=== PATIENT | female | born 1960 | race Caucasian/White ===

== ENCOUNTER 2020-02-14 12:32 | Inpatient (IN) | payer MEDICAID, OTHER ==
[2020-02-14] MEDS ORDERED: Sodium Chloride 0.9% 10 ML Syringe FLUSH PRN (12:56)
[2020-02-14] MEDS ORDERED: Sodium Chloride 0.9% 2.5 ML Syringe FLUSH PRN ×2 (12:56→15:51)
[2020-02-14] MEDS ORDERED: Pantoprazole 80 MG in Sodium Chloride 0.9% 20 ML IVPUSH ONE (13:05)
--- NOTE | 2020-02-14 13:15 | EDM.PDOC ---
ED HPI GENERAL MEDICAL PROBLEM - General Chief Complaint: Gastrointestinal Problem Stated Complaint: REFERRED FROM [facility] Time Seen by Provider: 02/14/20 12:48 Source of Information: Reports: Patient History Limitations: Reports: No Limitations - History of Present Illness INITIAL COMMENTS - FREE TEXT/NARRATIVE: 60-year-old female with a past medical history of diabetes mellitus, hypertension, status post cholecystectomy, status post appendectomy, Crohn's disease (not on immunosuppression), status post 2 bowel resections, hypertension presenting from [facility] due to repeated episodes of coffee-ground emesis and intractable vomiting. Initially seen in [facility] and noted to have recurrent episodes of emesis with coffee-ground appearance, so was sent to the e mergency department. Here in the emergency department, the patient reports a 2-day history of epigastric pain along with multiple episodes of coffee-ground emesis x4 today. She reports intermittent dark stools the past 2 weeks. Nothing makes her pain better or worse and does not radiate, described as "burning". She denies any history of a bleeding disorder, hemoptysis, hematuria, chest discomfort, shortness of breath, fever. ROS: A 10-point review of systems was negative, except as noted in the HPI (or in the ROS section of this note). Past medical history: Reviewed, no additional pertinent history. Surgical history: Reviewed in system, no additional pertinent history. Social history: Reviewed in system, no additional pertinent history. Family history: Reviewed in system, no additional pertinent history. PHYSICAL EXAM Vital signs reviewed. Nursing notes reviewed. Constitutional: Awake, alert, non-distressed. Head: Normocephalic, atraumatic. Eyes: EOMI, conjunctiva normal, no discharge, no scleral icterus. Ears, Nose, Throat: External ears and nose normal, moist oral mucosa. Cardiovascular: Tachycardia, 2+ radial pulse, capillary refill less than 2 seconds. Pulmonary: normal work of breathing, no accessory muscle use. RRR no MRG Abdomen/GI: Soft, nontender, nondistended, no guarding or rigidity, no masses. : Lone external hemorrhoid, no gross blood or melena. Weakly guaiac positive stool. Musculoskeletal: No deformities. Integumentary: Appropriate color for ethnicity, warm, dry, no pallor or jaundice, no rash. Neurologic: Alert, answering questions appropriately, normal speech, no facial droop, moving all extremities well. Psychiatric: Appropriate mood and affect, normal thought process. - Related Data Allergies Allergy/AdvReac Type Severity Reaction Status Date / Time aspirin [From Percodan] Allergy Muscle Verified 02/14/20 16:35 Weakness oxycodone HCl [From Percodan] Allergy Muscle Verified 02/14/20 16:35 Weakness oxycodone terephthalate Allergy Muscle Verified 02/14/20 16:35 [From Percodan] Weakness Home Meds: Home Meds . [No Known Home Meds] 02/14/20 [History] Past Medical History HEENT History: Reports: Other (See Below) Other HEENT History: wears glasses, has upper partial denture Cardiovascular History: Reports: CAD, Hypertension, Other (See Below) Other Cardiovascular History: Angioplasty in or . 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: Musculoskeletal History: Reports: None Neurological History: Reports: None Psychiatric History: Reports: None Other Psychiatric History: does not have depression currently Endocrine/Metabolic History: Reports: Diabetes, Type II Hematologic History: Reports: None Immunologic History: Reports: None Oncologic (Cancer) History: Reports: None Dermatologic History: Reports: None - Past Surgical History Head Surgeries/Procedures: Reports: None Cardiovascular Surgical History: Reports: Other (See Below) Respiratory Surgical History: Reports: None GI Surgical History: Reports: Cholecystectomy, Colon, Colonoscopy, EGD, Small Bowel Female Surgical History: Reports: Section, Hysterectomy, Salpingo- Oophorectomy Neurological Surgical History: Reports: None Musculoskeletal Surgical History: Reports: None Oncologic Surgical History: Reports: None Dermatological Surgical History: Reports: None Social & Family History - Family History Cardiac: Reports: Hypertension, [place] Neurological: Reports: CVA Endocrine/Metabolic: Reports: Diabetes, type II Oncologic: Reports: Breast, Colon ED ROS GENERAL - Review of Systems Review Of Systems: See Below ED EXAM, GI/ABD - Physical Exam Exam: See Below EKG INTERPRETATION EKG Interpretation Comments: 12-Lead ECG Interpretation Acquired: 1308 Rhythm: Sinus rhythm Rate: 90 [place]: Normal Intervals: Normal Ectopy: None Ischemic Changes: None apparent RV Strain: No obvious RV strain pattern. ST Segments/T-Waves: Prominent T-waves in inferior leads Course - Vital Signs Text/Narrative:: 60-year-old male presenting with epigastric abdominal pain, coffee-ground emesis . Reviewed labs from clinic earlier today, normal hemoglobin and overall reassuring lab values, no significant abnormalities. We establish an IV and lance additional labs. INR normal, lipase normal, troponin is negative. Patient was initially tachycardic, given 1 L of lactated Ringer's and heart rate normalized. Given 80 mg of IV pantoprazole. Stool was weakly guaiac positive. Given epigastric pain with reported coffee-ground emesis and guaiac positive stool, there is concern for an upper GI bleed. Patient will need to be admitted the hospital and will likely need to undergo endoscopy. I spoke with the hospitalist Dr. Woodard who agrees to admit. Last Recorded V/S: Last Vital Signs Temp 36.9 C 02/14/20 16:07 Pulse 77 02/14/20 16:07 Resp 16 02/14/20 16:07 BP 157/75 H 02/14/20 16:07 Pulse Ox 98 02/14/20 16:07 - Orders/Labs/Meds Orders: Active Orders 24 hr Category Date Time Status Admission Status [Patient Status] [ADT] Stat ADT 02/14/20 14:15 Active Notify Provider Consults [RC] ASDIRECTED Care 02/14/20 15:33 Active Pulse Oximetry [RC] ASDIRECTED Care 02/14/20 12:56 Active Consult to Physician [CONS] Stat Cons 02/14/20 15:32 Active Medication Orders Acetaminophen (Tylenol) 650 mg PO Q4H PRN PRN Reason: Pain (Mild 1-3)/fever Last Admin: 02/14/20 17:53 Dose: 650 mg Documented by: PROFLUC Sodium Chloride (Normal Saline) 1,000 mls @ 125 mls/hr IV Q8H PREETI Last Admin: 02/14/20 16:33 Dose: 125 mls/hr Documented by: DANIELLE Pantoprazole Sodium 40 mg/ (Sodium Chloride) 10 mls @ 200 mls/hr IV Q12H PREETI Ondansetron HCl (Zofran) 4 mg IVPUSH Q4H PRN PRN Reason: Nausea Sodium Chloride (Saline Flush) 2.5 ml FLUSH ASDIRECTED PRN PRN Reason: Keep Vein Open Labs: Laboratory Tests 02/14/20 02/14/20 02/14/20 Range/Units 13:24 13:24 13:24 INR 0.98 Troponin I < 0.050 (0.000-0.056) ng/mL Lipase 156 (73-393) U/L Blood Type A POSITIVE Meds: Medications Generic Name Dose Route Start Last Admin Trade Name Freq PRN Reason Stop Dose Admin Acetaminophen 650 mg 02/14/20 15:48 02/14/20 17:53 Tylenol PO 650 mg Q4H PRN Administration Pain (Mild 1-3)/fever Sodium Chloride 1,000 mls @ 125 mls/hr 02/14/20 16:00 02/14/20 16:33 Normal Saline IV 125 mls/hr Q8H PREETI Administration Pantoprazole Sodium 40 mg/ 10 mls @ 200 mls/hr 02/14/20 21:00 Sodium Chloride IV Q12H PREETI Ondansetron HCl 4 mg 02/14/20 15:48 Zofran IVPUSH Q4H PRN Nausea Sodium Chloride 2.5 ml 02/14/20 15:51 Saline Flush FLUSH ASDIRECTED PRN Keep Vein Open Discontinued Medications Generic Name Dose Route Start Last Admin Trade Name Freq PRN Reason Stop Dose Admin Pantoprazole Sodium 80 mg/ 20 mls @ 420 mls/hr 02/14/20 13:05 02/14/20 13:52 Sodium Chloride IVPUSH 02/14/20 13:07 420 mls/hr ONETIME ONE Administration Lactated Ringer's 1,000 mls @ 999 mls/hr 02/14/20 13:50 02/14/20 13:52 Ringers, Lactated IV 02/14/20 14:50 999 mls/hr .BOLUS ONE Administration Sodium Chloride 10 ml 02/14/20 12:56 Saline Flush FLUSH ASDIRECTED PRN Keep Vein Open Sodium Chloride 2.5 ml 02/14/20 12:56 Saline Flush FLUSH ASDIRECTED PRN Keep Vein Open Departure - Departure Time of Disposition: 14:44 Disposition: Admitted As Inpatient 65 Condition: Good Clinical Impression: Hematemesis Qualifiers: Nausea presence: with nausea Qualified Code(s): K92.0 - Hematemesis - Discharge Information Sepsis Event Note (ED) - Evaluation Sepsis Screening Result: No Definite Risk - Focused Exam Vital Signs: Vital Signs Temp Pulse Resp BP Pulse Ox 02/14/20 15:30 78 146/78 H 97 02/14/20 15:00 75 17 151/85 H 96 02/14/20 14:29 76 138/78 96 02/14/20 13:59 79 17 136/77 98 02/14/20 13:29 85 17 144/86 H 97 02/14/20 13:02 37.2 C 99 17 169/92 H 98 - My Orders Last 24 Hours: My Active Orders 02/14/20 12:56 Pulse Oximetry [RC] ASDIRECTED 02/14/20 14:15 Admission Status [Patient Status] [ADT] Stat - Assessment/Plan Last 24 Hours: My Active Orders 02/14/20 12:56 Pulse Oximetry [RC] ASDIRECTED 02/14/20 14:15 Admission Status [Patient Status] [ADT] Stat
[2020-02-14] MEDS ORDERED: Lactated Ringers 1,000 ML IV ONE (13:50)
[2020-02-14 14:07] LABS: LIPASE 156 U/L (73-393)
--- NOTE | 2020-02-14 15:42 | PCM.HP.2 ---
H&P History of Present Illness - General Date of Service: 02/14/20 Admit Problem/Dx: Admission Diagnosis/Problem Admission Diagnosis/Problem Hematemesis Source of Information: Patient History Limitations: Reports: No Limitations - History of Present Illness Initial Comments - Free Text/Narative: 60-year-old female with a pmh of DM type 2, HTN, hx cholecystectomy, appendecto my, Crohn's disease (not on immunosuppression), s/p 2 bowel resections presenting from [facility] clinic due to repeated episodes of coffee-ground emesis and intractable vomiting. She reports 2 days ago she started having epigastric pain and nausea, over the last day this pain has worsened and has had some relief with vomiting. She reports the emesis appeared like coffee grounds and stools have been dark in color. She reports the stools have change consistency freqeuntly and has noted smoe very watery stools and then some more formed normal stools over the past couple weeks or so. Denies rashmi bright red blood in stools. She denies fevers or chills, no chest pain or SOB. Pain is located in her epigastric region and slightly to her LUQ. She denies NSAID use and no alcohol use. No recreational drug use and no smoking. She reports her last colonoscopy was [address]. She has had many abdominal operations as listed above. She has not been on any medications in the last 2 years for Crohn's and currently is diet controlled DM and HTN. In the ED leukocytosis ntoed at 17,780, hgb 14.2, INR 0.98, lactic acid 1.8, BUN 21, Cr 0.9 troponin negative. A1c 6.3, Lipase 156. VS stable, no hypotension or tachycardia noted. No imaging completed in ED. She will be admitted inpatient for upper GI bleeding. - Related Data Allergies/Adverse Reactions: Allergies Allergy/AdvReac Type Severity Reaction Status Date / Time aspirin [From Percodan] Allergy Muscle Verified 02/14/20 13:02 Weakness oxycodone HCl [From Percodan] Allergy Muscle Verified 02/14/20 13:02 Weakness oxycodone terephthalate Allergy Muscle Verified 02/14/20 13:02 [From Percodan] Weakness Home Medications: Home Meds Losartan/Hydrochlorothiazide [Losartan-HCTZ 100-12.5 MG] 1 each PO DAILY 07/12/15 [History] Multivitamin [Multi-Day Vitamins] 1 tab PO DAILY 07/31/15 [History] Potassium Chloride [Klor-Con M20] 1 tab PO DAILY 07/31/15 [History] Vit B Cmplx 3/Fa/Vit C/Biotin [Nickie-Mohinder Rx Tablet] 1 tab PO DAILY 07/31/15 [History] sitaGLIPtin Phos/Metformin HCl [Janumet Xr 50-1,000 mg Tablet] 1 tab PO BID 07/31/15 [History] Calcium Carbonate/Vitamin D3 [Calcium 600 + Vit D 400 Tablet] 1 tab PO BID 09/30/15 [History] Cholestyramine/Aspartame [Cholestyramine Light Powder] 1 pkt PO DAILY 05/27/16 [History] Past Medical History HEENT History: Reports: Other (See Below) Other HEENT History: wears glasses, has upper partial denture Cardiovascular History: Reports: CAD, Hypertension, Other (See Below) Other Cardiovascular History: Angioplasty in or . 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: Musculoskeletal History: Reports: None Neurological History: Reports: None Psychiatric History: Reports: None Other Psychiatric History: does not have depression currently Endocrine/Metabolic History: Reports: Diabetes, Type II Hematologic History: Reports: None Immunologic History: Reports: None Oncologic (Cancer) History: Reports: None Dermatologic History: Reports: None - Infectious Disease History Infectious Disease History: Reports: None - Past Surgical History Head Surgeries/Procedures: Reports: None Cardiovascular Surgical History: Reports: Other (See Below) Respiratory Surgical History: Reports: None GI Surgical History: Reports: Cholecystectomy, Colon, Colonoscopy, EGD, Small Bowel Female Surgical History: Reports: Section, Hysterectomy, Salpingo- Oophorectomy Neurological Surgical History: Reports: None Musculoskeletal Surgical History: Reports: None Oncologic Surgical History: Reports: None Dermatological Surgical History: Reports: None Social & Family History - Family History Cardiac: Reports: Hypertension, [place] Neurological: Reports: CVA Endocrine/Metabolic: Reports: Diabetes, type II Oncologic: Reports: Breast, Colon - Tobacco Use Smoking Status *Q: Unknown Ever Smoked - Alcohol Use Alcohol Use History: No - Living Situation & Occupation Living situation: Reports: H&P Review of Systems - Review of Systems: Review Of Systems: See Below General: Reports: Malaise. Denies: Fever, Chills HEENT: Reports: No Symptoms. Denies: Headaches, Sinus Congestion, Vertigo Pulmonary: Reports: No Symptoms. Denies: Shortness of Breath Cardiovascular: Reports: No Symptoms. Denies: Chest Pain Gastrointestinal: Reports: Abdominal Pain (epigastric), Decreased Appetite, Hematemesis, Nausea, Vomiting. Denies: Black Stool (dark in color) Genitourinary: Reports: No Symptoms. Denies: Dysuria, Frequency, Burning Musculoskeletal: Reports: No Symptoms Skin: Reports: No Symptoms Psychiatric: Reports: No Symptoms Neurological: Reports: No Symptoms Hematologic/Lymphatic: Reports: No Symptoms Immunologic: Reports: No Symptoms Exam - Exam Exam: See Below - Vital Signs Vital Signs: Last Vital Signs Temp 98.9 F 02/14/20 13:02 Pulse 85 02/14/20 13:29 Resp 17 02/14/20 13:29 BP 144/86 H 02/14/20 13:29 Pulse Ox 97 02/14/20 13:29 Weight: 58.967 kg - Exam General: Alert, Oriented, Cooperative Neck: Supple, Trachea Midline Lungs: Clear to Auscultation, Normal Respiratory Effort Cardiovascular: Regular Rate, Regular Rhythm GI/Abdominal Exam: Normal Bowel Sounds, Soft, Tender (epigastric) Back Exam: Normal Inspection, Full Range of Motion Extremities: Normal Inspection, Normal Range of Motion, Non-Tender, No Pedal Edema Neuro Extensive - Mental Status: Alert, Oriented x3 Neuro Extensive - Motor, Sensory, Reflexes: CN II-XII Intact Psychiatric: Alert, Normal Affect, Normal Mood - Patient Data Lab Results Last 24 hrs: Laboratory Results - last 24 hr 02/14/20 02/14/20 02/14/20 Range/Units 13:24 13:24 13:24 INR 0.98 Troponin I < 0.050 (0.000-0.056) ng/mL Lipase 156 (73-393) U/L Blood Type A POSITIVE Sepsis Event Note - Evaluation Sepsis Screening Result: No Definite Risk - Focused Exam Vital Signs: Vital Signs Temp Pulse Resp BP Pulse Ox 02/14/20 13:29 85 17 144/86 H 97 02/14/20 13:02 98.9 F 99 17 169/92 H 98 - Problem List (1) Hematemesis SNOMED Code(s): 8630552 ICD Code: K92.0 - HEMATEMESIS Status: Acute Current Visit: Yes Qualifiers: Nausea presence: with nausea Qualified Code(s): K92.0 - Hematemesis (2) HTN (hypertension) SNOMED Code(s): 79702133 ICD Code: I10 - ESSENTIAL (PRIMARY) HYPERTENSION Status: Chronic Current Visit: Yes Qualifiers: Hypertension type: essential hypertension Qualified Code(s): I10 - Essential (primary) hypertension (3) DM type 2 (diabetes mellitus, type 2) SNOMED Code(s): 54247830 ICD Code: E11.9 - TYPE 2 DIABETES MELLITUS WITHOUT COMPLICATIONS Status: Chronic Current Visit: Yes Qualifiers: Diabetes mellitus penitentiary insulin use: without intermediate project manager use Diabetes mellitus complication status: without complication Qualified Code(s): E11.9 - Type 2 diabetes mellitus without complications (4) Crohn disease SNOMED Code(s): 22981338 ICD Code: K50.90 - CROHN'S DISEASE, UNSPECIFIED, WITHOUT COMPLICATIONS Status: Chronic Current Visit: Yes Problem List Initiated/Reviewed/Updated: Yes Orders Last 24hrs: Active Orders 24 hr Category Date Time Status Admission Status [Patient Status] [ADT] Stat ADT 02/14/20 14:15 Active Cardiac Monitoring [RC] . DIRECTED Care 02/14/20 12:56 Active EKG Documentation Completion [RC] STAT Care 02/14/20 12:56 Active Notify Provider Consults [RC] ASDIRECTED Care 02/14/20 15:33 Active Pulse Oximetry [RC] ASDIRECTED Care 02/14/20 12:56 Active Consult to Physician [CONS] Stat Cons 02/14/20 15:32 Active Nothing Per Oral Diet [DIET] Diet 02/14/20 Breakfast Active Abdomen Pelvis wo Cont [CT] Stat Exams 02/14/20 15:40 Ordered Sodium Chloride 0.9% [Saline Flush] Med 02/14/20 12:56 Active 10 ml FLUSH ASDIRECTED PRN Sodium Chloride 0.9% [Saline Flush] Med 02/14/20 12:56 Active 2.5 ml FLUSH ASDIRECTED PRN Saline Lock Insert [OM.PC] Stat Oth 02/14/20 12:56 Ordered Medication Orders Sodium Chloride (Saline Flush) 10 ml FLUSH ASDIRECTED PRN PRN Reason: Keep Vein Open Sodium Chloride (Saline Flush) 2.5 ml FLUSH ASDIRECTED PRN PRN Reason: Keep Vein Open Assessment/Plan Comment:: This 60 year old female admitted with hematemsis and suspect upper GI bleeding 1. Upper GI bleeding - leukocytosis noted, will add CT abdomen/pelvis on due to hx of Crohns to further evaluate - Protonix 40 mg IV Q12h - IVFs NS 125 overnight - NPO for now - Dr Paul, General surgery consulted 2. DM type 2 - Novolog SSI every 6 hours with blood sugar checks 3. HTN/Crohns - Monitor for now. Stable VTE prophylaxis: SCDs Dispo: 2-3 days pending improvement
[2020-02-14] MEDS ORDERED: Acetaminophen 325 MG Tab PO PRN (15:48)
[2020-02-14] MEDS ORDERED: Ondansetron 4 MG/2 ML SDV IVPUSH PRN (15:48)
[2020-02-14] MEDS: Sodium Chloride 0.9% 1,000 ML IV SCH (16:33)
--- NOTE | 2020-02-14 17:29 | CT ---
CT abdomen and pelvis Technique: Multiple axial sections were obtained from above the dome of the diaphragm inferiorly through the pubic symphysis. Intravenous and oral contrast not utilized. Comparison: No prior CT abdomen or pelvis exam is available. Findings: Visualized lung bases show nothing acute. Liver contains no focal abnormality. Spleen appears within normal limits. Adrenal glands show no nodule. Surgical clips are seen from previous cholecystectomy. Pancreas shows no discrete abnormality. Kidneys show no abnormal calcifications. No ureteral dilatation or ureteral stone is appreciated. Aorta shows no aneurysm. No retroperitoneal adenopathy or mesenteric abnormalities are seen. Mild atherosclerotic calcification seen within the aorta. Mild increased stool seen throughout the colon. Mildly dilated small bowel loops are seen. Previous right hemicolectomy is noted. No pelvic mass or adenopathy is seen. Bone window settings were reviewed which shows no acute osseous finding. Impression: 1. Previous right hemicolectomy. 2. Mild increased stool within the colon. 3. Mildly dilated small bowel loops which occurs all the way to the anastomotic site within the residual right colon. Fecalized small bowel content is seen within the distal ileum. 4. No focal areas of bowel wall narrowing are seen. Diagnostic code #3 This report was dictated in [facility]
[2020-02-14] MEDS ORDERED: Pantoprazole 40 MG Vial IV SCH (21:00)
[2020-02-14] MEDS: Pantoprazole 40 MG in Sodium Chloride 0.9% 10 ML IV SCH (21:20)
[2020-02-14] MEDS: Ciprofloxacin in D5W 400 MG in Premix Bag 1 BAG IV SCH ×2 (21:20)
[2020-02-15] MEDS: metroNIDAZOLE/Normal Saline 500 MG in Premix Bag 1 BAG IV SCH ×4 (00:18→18:02)
[2020-02-15] MEDS: Sodium Chloride 0.9% 1,000 ML IV SCH ×2 (03:42→14:06)
[2020-02-15 07:30] LABS: BLOOD UREA NITROGEN,BUN 14 mg/dL (7.0-18.0); CARBON DIOXIDE,CO2 20.3 mmol/L (21.0-32.0); CHLORIDE,CL 112 mmol/L (98-107); GLUCOSE RANDOM 87 mg/dL (74-106); POTASSIUM,K 3.5 mmol/L (3.5-5.1); SODIUM,NA 143 mmol/L (136-145)
[2020-02-15] MEDS: Ciprofloxacin in D5W 400 MG in Premix Bag 1 BAG IV SCH ×4 (08:24→22:00)
--- NOTE | 2020-02-15 09:40 | PCM.SN.2 ---
- Free Text/Narrative Note: pt seen, chart reviewed; resolved emisis/abd cramp, had well formed BM last night; recommend start po diet, full liquid X 3 days, then advance if tolerated; setve foy surgery AND crohns GI in 1 - 2 wks; will sign off, recall if question; [id number]
[2020-02-15] MEDS: Pantoprazole 40 MG in Sodium Chloride 0.9% 10 ML IV SCH ×2 (09:58→21:52)
--- NOTE | 2020-02-15 13:08 | PCM.PN ---
- General Info Date of Service: 02/15/20 Admission Dx/Problem (Free Text): Admission Diagnosis/Problem Admission Diagnosis/Problem Hematemesis Subjective Update: Feeling a little better this morning, had BM last night. NO further nausea or emesis. No chest pain or SOB. Reports stomach feels a little uneasy with some pressure but otherwise doing ok. No fevers or chills. Functional Status: Reports: Pain Controlled, Ambulating, Urinating - Review of Systems General: Reports: Malaise HEENT: Reports: No Symptoms. Denies: Headaches, Sore Throat, Visual Changes Pulmonary: Reports: No Symptoms. Denies: Shortness of Breath Cardiovascular: Reports: No Symptoms. Denies: Chest Pain Gastrointestinal: Reports: Abdominal Pain (pressure intermittently epigastric). Denies: Nausea, Vomiting Genitourinary: Reports: No Symptoms. Denies: Dysuria, Frequency Musculoskeletal: Reports: No Symptoms Skin: Reports: No Symptoms Neurological: Reports: No Symptoms Psychiatric: Reports: No Symptoms - Patient Data Vitals - Most Recent: Last Vital Signs Temp 97.7 F 02/15/20 08:00 Pulse 78 02/15/20 08:00 Resp 16 02/15/20 08:00 BP 153/67 H 02/15/20 08:00 Pulse Ox 95 02/15/20 08:00 Weight - Most Recent: 53.2 kg I&O - Last 24 Hours: Intake & Output 02/14/20 02/15/20 02/15/20 22:59 06:59 14:59 Intake Total 10 666 100 Output Total 200 600 Balance -190 66 100 Lab Results Last 24 Hours: Laboratory Results - last 24 hr 02/14/20 02/14/20 02/14/20 Range/Units 13:24 13:24 13:24 WBC (4.0-11.0) K/uL RBC (4.30-5.90) M/uL Hgb (12.0-16.0) g/dL Hct (36.0-46.0) % MCV (80.0-98.0) fL MCH (27.0-32.0) pg MCHC (31.0-37.0) g/dL RDW Std Deviation (28.0-62.0) fl RDW Coeff of Kathie (11.0-15.0) % Plt Count (150-400) K/uL MPV (7.40-12.00) fL Neut % (Auto) (48.0-80.0) % Lymph % (Auto) (16.0-40.0) % Casey % (Auto) (0.0-15.0) % Eos % (Auto) (0.0-7.0) % Baso % (Auto) (0.0-1.5) % Neut # (Auto) (1.4-5.7) K/uL Lymph # (Auto) (0.6-2.4) K/uL Casey # (Auto) (0.0-0.8) K/uL Eos # (Auto) (0.0-0.7) K/uL Baso # (Auto) (0.0-0.1) K/uL Nucleated RBC % /100WBC Nucleated RBCs # K/uL INR 0.98 Sodium (136-145) mmol/L Potassium (3.5-5.1) mmol/L Chloride (98-107) mmol/L Carbon Dioxide (21.0-32.0) mmol/L BUN (7.0-18.0) mg/dL Creatinine (0.6-1.0) mg/dL Est Cr Clr Drug Dosing mL/min Estimated GFR (MDRD) ml/min Glucose (74-106) mg/dL POC Glucose (60-110) mg/dL Calcium (8.5-10.1) mg/dL Troponin I < 0.050 (0.000-0.056) ng/mL Lipase 156 (73-393) U/L Blood Type A POSITIVE 02/14/20 02/14/20 02/15/20 Range/Units 18:52 21:12 00:36 WBC (4.0-11.0) K/uL RBC (4.30-5.90) M/uL Hgb 12.1 (12.0-16.0) g/dL Hct 38.7 (36.0-46.0) % MCV (80.0-98.0) fL MCH (27.0-32.0) pg MCHC (31.0-37.0) g/dL RDW Std Deviation (28.0-62.0) fl RDW Coeff of Kathie (11.0-15.0) % Plt Count (150-400) K/uL MPV (7.40-12.00) fL Neut % (Auto) (48.0-80.0) % Lymph % (Auto) (16.0-40.0) % Casey % (Auto) (0.0-15.0) % Eos % (Auto) (0.0-7.0) % Baso % (Auto) (0.0-1.5) % Neut # (Auto) (1.4-5.7) K/uL Lymph # (Auto) (0.6-2.4) K/uL Casey # (Auto) (0.0-0.8) K/uL Eos # (Auto) (0.0-0.7) K/uL Baso # (Auto) (0.0-0.1) K/uL Nucleated RBC % /100WBC Nucleated RBCs # K/uL INR Sodium (136-145) mmol/L Potassium (3.5-5.1) mmol/L Chloride (98-107) mmol/L Carbon Dioxide (21.0-32.0) mmol/L BUN (7.0-18.0) mg/dL Creatinine (0.6-1.0) mg/dL Est Cr Clr Drug Dosing mL/min Estimated GFR (MDRD) ml/min Glucose (74-106) mg/dL POC Glucose 113 H 80 (60-110) mg/dL Calcium (8.5-10.1) mg/dL Troponin I (0.000-0.056) ng/mL Lipase (73-393) U/L Blood Type 02/15/20 02/15/20 Range/Units 06:00 06:00 WBC 5.97 (4.0-11.0) K/uL RBC 3.99 L (4.30-5.90) M/uL Hgb 11.3 L (12.0-16.0) g/dL Hct 36.0 (36.0-46.0) % MCV 90.2 (80.0-98.0) fL MCH 28.3 (27.0-32.0) pg MCHC 31.4 (31.0-37.0) g/dL RDW Std Deviation 48.2 (28.0-62.0) fl RDW Coeff of Kathie 15 (11.0-15.0) % Plt Count 259 (150-400) K/uL MPV 10.40 (7.40-12.00) fL Neut % (Auto) 55.2 (48.0-80.0) % Lymph % (Auto) 30.8 (16.0-40.0) % Casey % (Auto) 12.2 (0.0-15.0) % Eos % (Auto) 1.5 (0.0-7.0) % Baso % (Auto) 0.3 (0.0-1.5) % Neut # (Auto) 3.3 (1.4-5.7) K/uL Lymph # (Auto) 1.8 (0.6-2.4) K/uL Casey # (Auto) 0.7 (0.0-0.8) K/uL Eos # (Auto) 0.1 (0.0-0.7) K/uL Baso # (Auto) 0.0 (0.0-0.1) K/uL Nucleated RBC % 0.0 /100WBC Nucleated RBCs # 0 K/uL INR Sodium 143 (136-145) mmol/L Potassium 3.5 (3.5-5.1) mmol/L Chloride 112 H (98-107) mmol/L Carbon Dioxide 20.3 L (21.0-32.0) mmol/L BUN 14 (7.0-18.0) mg/dL Creatinine 0.8 (0.6-1.0) mg/dL Est Cr Clr Drug Dosing 53.04 mL/min Estimated GFR (MDRD) > 60.0 ml/min Glucose 87 (74-106) mg/dL POC Glucose (60-110) mg/dL Calcium 7.8 L (8.5-10.1) mg/dL Troponin I (0.000-0.056) ng/mL Lipase (73-393) U/L Blood Type Girish Results Last 24 Hours: Microbiology 02/14/20 18:30 C. difficile Antigen & Toxins A,B - Final Stool / Feces Med Orders - Current: Current Medications Acetaminophen (Tylenol) 650 mg PO Q4H PRN PRN Reason: Pain (Mild 1-3)/fever Last Admin: 02/14/20 17:53 Dose: 650 mg Documented by: Sodium Chloride (Normal Saline) 1,000 mls @ 125 mls/hr IV Q8H [facility] Last Admin: 02/15/20 03:42 Dose: 125 mls/hr Documented by: Pantoprazole Sodium 40 mg/ (Sodium Chloride) 10 mls @ 200 mls/hr IV Q12H [facility] Last Admin: 02/15/20 09:58 Dose: 200 mls/hr Documented by: Ciprofloxacin/Dextrose 400 mg/ (Premix) 200 mls @ 200 mls/hr IV Q12H [facility] Last Admin: 02/15/20 08:24 Dose: 200 mls/hr Documented by: Metronidazole 500 mg/ Premix 100 mls @ 100 mls/hr IV QID [facility] Last Admin: 02/15/20 12:18 Dose: 100 mls/hr Documented by: Ondansetron HCl (Zofran) 4 mg IVPUSH Q4H PRN PRN Reason: Nausea Sodium Chloride (Saline Flush) 2.5 ml FLUSH ASDIRECTED PRN PRN Reason: Keep Vein Open Discontinued Medications Pantoprazole Sodium 80 mg/ (Sodium Chloride) 20 mls @ 420 mls/hr IVPUSH ONETIME ONE Stop: 02/14/20 13:07 Last Admin: 02/14/20 13:52 Dose: 420 mls/hr Documented by: Lactated Ringer's (Ringers, Lactated) 1,000 mls @ 999 mls/hr IV .BOLUS ONE Stop: 02/14/20 14:50 Last Admin: 02/14/20 13:52 Dose: 999 mls/hr Documented by: Sodium Chloride (Saline Flush) 10 ml FLUSH ASDIRECTED PRN PRN Reason: Keep Vein Open Sodium Chloride (Saline Flush) 2.5 ml FLUSH ASDIRECTED PRN PRN Reason: Keep Vein Open - Exam General: Alert, Oriented, Cooperative, No Acute Distress Neck: Supple Lungs: Clear to Auscultation, Normal Respiratory Effort Cardiovascular: Regular Rate, Regular Rhythm GI/Abdominal Exam: Normal Bowel Sounds, Soft, Non-Tender Back Exam: Normal Inspection, Full Range of Motion Extremities: Normal Inspection, Normal Range of Motion, Non-Tender, No Pedal Edema Wound/Incisions: Healing Well Neurological: No New Focal Deficit Psy/Mental Status: Alert, Normal Affect, Normal Mood Sepsis Event Note - Evaluation Sepsis Screening Result: No Definite Risk - Focused Exam Vital Signs: Vital Signs Temp Pulse Resp BP Pulse Ox 02/15/20 08:00 97.7 F 78 16 153/67 H 95 02/15/20 04:20 96.6 F L 75 14 133/74 98 - Problem List & Annotations (1) Hematemesis SNOMED Code(s): 6623746 Code(s): K92.0 - HEMATEMESIS Status: Acute Current Visit: Yes Qualifiers: Nausea presence: with nausea Qualified Code(s): K92.0 - Hematemesis (2) HTN (hypertension) SNOMED Code(s): 43068113 Code(s): I10 - ESSENTIAL (PRIMARY) HYPERTENSION Status: Chronic Current Visit: Yes Qualifiers: Hypertension type: essential hypertension Qualified Code(s): I10 - Essential (primary) hypertension (3) DM type 2 (diabetes mellitus, type 2) SNOMED Code(s): 82003501 Code(s): E11.9 - TYPE 2 DIABETES MELLITUS WITHOUT COMPLICATIONS Status: Chronic Current Visit: Yes Qualifiers: Diabetes mellitus intermediate insulin use: without intermediate use Diabetes mellitus complication status: without complication Qualified Code(s): E11.9 - Type 2 diabetes mellitus without complications (4) Crohn disease SNOMED Code(s): 18124418 Code(s): K50.90 - CROHN'S DISEASE, UNSPECIFIED, WITHOUT COMPLICATIONS Status: Chronic Current Visit: Yes - Problem List Review Problem List Initiated/Reviewed/Updated: Yes - My Orders Last 24 Hours: My Active Orders 02/14/20 15:32 Consult to Physician [CONS] Stat 02/14/20 15:33 Notify Provider Consults [RC] ASDIRECTED 02/14/20 15:48 Oxygen Therapy [RC] PRN Up With Assistance [RC] ASDIRECTED VTE/DVT Education [RC] PER UNIT ROUTINE Vital Signs [RC] Q4H Acetaminophen [TylenoL] 650 mg PO Q4H PRN Ondansetron [Zofran] 4 mg IVPUSH Q4H PRN Resuscitation Status Routine 02/14/20 15:49 Antiembolic Devices [RC] PER UNIT ROUTINE Intake and Output [RC] QSHIFT Sequential Compression Device [OM.PC] Per Unit Routine 02/14/20 15:51 Sodium Chloride 0.9% [Saline Flush] 2.5 ml FLUSH ASDIRECTED PRN Saline Lock Insert [OM.PC] Routine 02/14/20 16:00 Sodium Chloride 0.9% [Normal Saline] 1,000 ml IV Q8H 02/14/20 18:30 STOOL CULTURE/SHIGA TOXIN [MREF] Routine 02/14/20 21:00 Pantoprazole [ProTONIX IV] 40 mg Sodium Chloride 0.9% [Normal Saline] 10 ml IV Q12H 02/15/20 Breakfast Clear Liquid Diet [DIET] - Plan Plan:: This 60 year old female admitted with hematemsis and suspect upper GI bleeding 1. Upper GI bleeding - No further vomiting, hgb stable. - Protonix 40 mg IV Q12h - IVFs NS 125 overnight - CL diet monitor tolerance this afternoon - Dr Paul, General surgery consulted - Ciprofloxacin and flagyl given for CT findings. Consider gastroenteritis or Crohn's flare. 2. DM type 2 - Novolog SSI every 6 hours with blood sugar checks 3. HTN/Crohns - Monitor for now. Stable VTE prophylaxis: SCDs Dispo: 2-3 days pending improvement
--- NOTE | 2020-02-15 14:31 | CONS ---
DATE OF CONSULTATION: 02/15/2020 DATE OF : 1960 PRIMARY CARE PHYSICIAN: Sarah Villalpando NP REASON FOR CONSULTATION: Consult was called, the patient seen shortly after. Consulting question is coffee-ground emesis. HISTORY OF PRESENT ILLNESS: The patient is a 60-year-old petite lady, , and with history of Crohn disease. Complained over several day history of not feeling well and yesterday had several episodes of coffee-ground emesis and was admitted through the emergency room. The patient denied shortness of breath and syncope and weakness. The patient remarked she had some dark stool, but there is no bright red blood per rectum. Had a well-formed stool overnight after CAT scan and the stool is dark, but is not black. ALLERGIES: Please refer to nursing note for detail. MEDICATIONS: Please refer to nursing note for detail. FAMILY HISTORY: Noncontributory. PAST MEDICAL HISTORY: Significant for diabetes, hypertension, and Crohn's, but has not been on immunosuppressive for 2 years. PAST SURGICAL HISTORY: Cholecystectomy, appendectomy, and right hemicolectomy and complete colonoscopy [place] [address] Cha. PHYSICAL EXAMINATION: GENERAL: A very pleasant lady, smiled to the doctor, in no acute distress. HEENT: Normocephalic and atraumatic. Sclerae are anicteric. LUNGS: Clear to auscultation. HEART: Regular rate and rhythm. ABDOMEN: Soft, nondistended. No pulsating tender midline abdominal structure. Well-healed lower midline surgical incision and no incisional hernia appreciated. LABORATORY DATA: Upon consultation, white count is 6.0, H and H are 11 and 36, platelets are 259. INR is 0.98. BUN is 14, creatinine is 0.8. CAT scan report a lot of stool and mildly dilated small bowel up to the anastomosis. IMPRESSION: Resolved abdominal pain and resolved emesis. Looked like the patient is probably constipated and may get help after the CAT scan and had a well-formed bowel movement, and the patient currently denies abdominal pain and is hungry and no more nauseated. Recommend to start oral feeding and follow up with a general surgeon in 1 to 2 weeks. With the patient's Crohn disease, although apparently is not a flare up, the patient probably would better benefit to seeing a GI doctor with colon specialist, at least annually, once a year, and that may help in her medical management. We will sign off and recall if question. Thanks for the consult and care of this pleasant lady. DEBORAH / BUBBA /[id number]
[2020-02-16] MEDS: metroNIDAZOLE/Normal Saline 500 MG in Premix Bag 1 BAG IV SCH ×3 (00:11→13:11)
[2020-02-16] MEDS: Sodium Chloride 0.9% 1,000 ML IV SCH ×3 (03:23→10:45)
[2020-02-16 06:34] LABS: BLOOD UREA NITROGEN,BUN 5 mg/dL (7.0-18.0); CARBON DIOXIDE,CO2 21.5 mmol/L (21.0-32.0); CHLORIDE,CL 112 mmol/L (98-107); GLUCOSE RANDOM 106 mg/dL (74-106); POTASSIUM,K 3.4 mmol/L (3.5-5.1); SODIUM,NA 144 mmol/L (136-145)
[2020-02-16] MEDS ORDERED: Potassium Chloride 20 MEQ Tab.ER PO ONE (07:52)
[2020-02-16] MEDS: Pantoprazole 40 MG in Sodium Chloride 0.9% 10 ML IV SCH (08:41)
[2020-02-16] MEDS: Ciprofloxacin in D5W 400 MG in Premix Bag 1 BAG IV SCH ×2 (08:46)
--- NOTE | 2020-02-16 11:16 | PCM.DCSUM1 ---
Discharge Summary - Hospital Course Brief History: 60-year-old female with a pmh of DM type 2, HTN, hx cholecystectomy, appendectomy, Crohn's disease (not on immunosuppression), s/p 2 bowel resections presenting from [facility] due to repeated episodes of coffee-ground emesis and intractable vomiting. She reports 2 days ago she started having epigastric pain and nausea, over the last day this pain has worsened and has had some relief with vomiting. She reports the emesis appeared like coffee grounds and stools have been dark in color. She reports the stools have change consistency freqeuntly and has noted smoe very watery stools and then some more formed normal stools over the past couple weeks or so. Denies rashmi bright red blood in stools. She denies fevers or chills, no chest pain or SOB. Pain is located in her epigastric region and slightly to her LUQ. She denies NSAID use and no alcohol use. No recreational drug use and no smoking. She reports her last colonoscopy was [address] Cha. She has had many abdominal operations as listed above. She has not been on any medications in the last 2 years for Crohn's and currently is diet controlled DM and HTN. In the ED leukocytosis ntoed at 17,780, hgb 14.2, INR 0.98, lactic acid 1.8, BUN 21, Cr 0.9 troponin negative. A1c 6.3, Lipase 156. VS stable, no hypotension or tachycardia noted. No imaging completed in ED. She will be admitted inpatient for upper GI bleeding. Diagnosis: Stroke: No - Discharge Data Discharge Date: 02/16/20 Discharge Disposition: Home, Self-Care 01 Condition: Stable - Referral to Home Health Primary Care Physician: Sarah Villalpando NP - Discharge Diagnosis/Problem(s) (1) Hematemesis SNOMED Code(s): 3951682 ICD Code: K92.0 - HEMATEMESIS Status: Acute Current Visit: Yes Qualifiers: Nausea presence: with nausea Qualified Code(s): K92.0 - Hematemesis (2) HTN (hypertension) SNOMED Code(s): 22529569 ICD Code: I10 - ESSENTIAL (PRIMARY) HYPERTENSION Status: Chronic Current Visit: Yes Qualifiers: Hypertension type: essential hypertension Qualified Code(s): I10 - Essential (primary) hypertension (3) DM type 2 (diabetes mellitus, type 2) SNOMED Code(s): 42832112 ICD Code: E11.9 - TYPE 2 DIABETES MELLITUS WITHOUT COMPLICATIONS Status: Chronic Current Visit: Yes Qualifiers: Diabetes mellitus half-way insulin use: without half-way use Diabetes mellitus complication status: without complication Qualified Code(s): E11.9 - Type 2 diabetes mellitus without complications (4) Crohn disease SNOMED Code(s): 65934141 ICD Code: K50.90 - CROHN'S DISEASE, UNSPECIFIED, WITHOUT COMPLICATIONS Status: Chronic Current Visit: Yes - Patient Summary/Data Consults: Consultations 02/14/20 15:32 Consult to Physician [CONS] Stat Hospital Course: Admitting Diagnoses: Suspected upper GI bleeding Enteritis Discharge Diagnoses: Suspected upper GI bleeding Enteritis HTN Keisha was admitted and treated for potential Upper GI bleeding and enteritis. CT revealed some dilated small bowel. She was kept NPO and given Protonix BID as well as Cipro and Flagyl IV. Today she is doing much better, leukocytosis has. Dr Paul consulted recommended outpatient follow up with general surgery, patient requests seeing Dr Cha as he has done many of her scopes in the past. She is tolerating soft diet and is very eager for discharge. She will be continued on 12 more days of Levaquin and Flagyl. Follow up with PCP and Dr Cha. She will continue Protonix BID for 14 days. HTN noted, she was encouraged to restart her losartan/HCTZ de to BPs. She will monitor and restart at home. New prescription sent. She is to return to the ED or clinic if concerns should arise. - Patient Instructions Diet: GI Soft/Low Residue/Low Fiber Activity: As Tolerated, No Strenuous Activities Showering/Bathing: May Shower Notify Provider of: Fever, Increased Pain, Swelling and Redness, Drainage, Nausea and/or Vomiting Other/Special Instructions: Monitor BP at home, if it remains high 170-190 on the top, please take Losartan/HCTZ medications - Discharge Plan *PRESCRIPTION DRUG MONITORING PROGRAM REVIEWED*: Not Applicable *COPY OF PRESCRIPTION DRUG MONITORING REPORT IN PATIENT ROBBIE: Not Applicable Prescriptions/Med Rec: metroNIDAZOLE [Flagyl] 500 mg PO Q8H #36 tab levoFLOXacin [Levaquin] 750 mg PO DAILY #12 tab Losartan/Hydrochlorothiazide [Losartan-HCTZ 100-12.5 MG] 1 each PO DAILY #30 tablet Pantoprazole Sodium [Protonix] 40 mg PO BID #28 tablet. Home Medications: Home Meds Losartan/Hydrochlorothiazide [Losartan-HCTZ 100-12.5 MG] 1 each PO DAILY #30 tablet 02/16/20 [Rx] Pantoprazole Sodium [Protonix] 40 mg PO BID #28 tablet. 02/16/20 [Rx] levoFLOXacin [Levaquin] 750 mg PO DAILY #12 tab 02/16/20 [Rx] metroNIDAZOLE [Flagyl] 500 mg PO Q8H #36 tab 02/16/20 [Rx] Oxygen Therapy Mode: Room Air Referrals: Ahsan Cha MD [Physician] - 02/28/20 10:15 am Julio Recinos MD [Physician] - 02/26/20 1:30 pm - Discharge Summary/Plan Comment DC Time >30 min.: No - Patient Data Vitals - Most Recent: Last Vital Signs Temp 97 F 02/16/20 07:06 Pulse 69 02/16/20 07:06 Resp 16 02/16/20 07:06 BP 162/70 H 02/16/20 07:06 Pulse Ox 97 02/16/20 07:06 Weight - Most Recent: 53.2 kg I&O - Last 24 hours: Intake & Output 02/15/20 02/16/20 02/16/20 22:59 06:59 14:59 Intake Total 1666 Output Total 1950 Balance -284 Lab Results - Last 24 hrs: Laboratory Results - last 24 hr 02/15/20 02/15/20 02/16/20 Range/Units 17:12 22:08 05:29 WBC 6.11 (4.0-11.0) K/uL RBC 3.87 L (4.30-5.90) M/uL Hgb 11.0 L (12.0-16.0) g/dL Hct 35.1 L (36.0-46.0) % MCV 90.7 (80.0-98.0) fL MCH 28.4 (27.0-32.0) pg MCHC 31.3 (31.0-37.0) g/dL RDW Std Deviation 48.7 (28.0-62.0) fl RDW Coeff of Kathie 15 (11.0-15.0) % Plt Count 242 (150-400) K/uL MPV 10.60 (7.40-12.00) fL Neut % (Auto) 59.5 (48.0-80.0) % Lymph % (Auto) 25.9 (16.0-40.0) % Finney % (Auto) 13.1 (0.0-15.0) % Eos % (Auto) 1.3 (0.0-7.0) % Baso % (Auto) 0.2 (0.0-1.5) % Neut # (Auto) 3.6 (1.4-5.7) K/uL Lymph # (Auto) 1.6 (0.6-2.4) K/uL Finney # (Auto) 0.8 (0.0-0.8) K/uL Eos # (Auto) 0.1 (0.0-0.7) K/uL Baso # (Auto) 0.0 (0.0-0.1) K/uL Nucleated RBC % 0.0 /100WBC Nucleated RBCs # 0 K/uL Sodium (136-145) mmol/L Potassium (3.5-5.1) mmol/L Chloride (98-107) mmol/L Carbon Dioxide (21.0-32.0) mmol/L BUN (7.0-18.0) mg/dL Creatinine (0.6-1.0) mg/dL Est Cr Clr Drug Dosing mL/min Estimated GFR (MDRD) ml/min Glucose (74-106) mg/dL POC Glucose 80 115 H (60-110) mg/dL Calcium (8.5-10.1) mg/dL 02/16/20 02/16/20 Range/Units 05:29 06:10 WBC (4.0-11.0) K/uL RBC (4.30-5.90) M/uL Hgb (12.0-16.0) g/dL Hct (36.0-46.0) % MCV (80.0-98.0) fL MCH (27.0-32.0) pg MCHC (31.0-37.0) g/dL RDW Std Deviation (28.0-62.0) fl RDW Coeff of Kathie (11.0-15.0) % Plt Count (150-400) K/uL MPV (7.40-12.00) fL Neut % (Auto) (48.0-80.0) % Lymph % (Auto) (16.0-40.0) % Finney % (Auto) (0.0-15.0) % Eos % (Auto) (0.0-7.0) % Baso % (Auto) (0.0-1.5) % Neut # (Auto) (1.4-5.7) K/uL Lymph # (Auto) (0.6-2.4) K/uL Finney # (Auto) (0.0-0.8) K/uL Eos # (Auto) (0.0-0.7) K/uL Baso # (Auto) (0.0-0.1) K/uL Nucleated RBC % /100WBC Nucleated RBCs # K/uL Sodium 144 (136-145) mmol/L Potassium 3.4 L (3.5-5.1) mmol/L Chloride 112 H (98-107) mmol/L Carbon Dioxide 21.5 (21.0-32.0) mmol/L BUN 5 L (7.0-18.0) mg/dL Creatinine 0.8 (0.6-1.0) mg/dL Est Cr Clr Drug Dosing 53.04 mL/min Estimated GFR (MDRD) > 60.0 ml/min Glucose 106 (74-106) mg/dL POC Glucose 117 H (60-110) mg/dL Calcium 7.9 L (8.5-10.1) mg/dL Med Orders - Current: Current Medications Acetaminophen (Tylenol) 650 mg PO Q4H PRN PRN Reason: Pain (Mild 1-3)/fever Last Admin: 02/14/20 17:53 Dose: 650 mg Documented by: Sodium Chloride (Normal Saline) 1,000 mls @ 125 mls/hr IV Q8H [facility] Last Admin: 02/16/20 10:45 Dose: Not Given Documented by: Pantoprazole Sodium 40 mg/ (Sodium Chloride) 10 mls @ 200 mls/hr IV Q12H [facility] Last Admin: 02/16/20 08:41 Dose: 200 mls/hr Documented by: Ciprofloxacin/Dextrose 400 mg/ (Premix) 200 mls @ 200 mls/hr IV Q12H [facility] Last Admin: 02/16/20 08:46 Dose: 200 mls/hr Documented by: Metronidazole 500 mg/ Premix 100 mls @ 100 mls/hr IV QID [facility] Last Admin: 02/16/20 06:17 Dose: 100 mls/hr Documented by: Ondansetron HCl (Zofran) 4 mg IVPUSH Q4H PRN PRN Reason: Nausea Sodium Chloride (Saline Flush) 2.5 ml FLUSH ASDIRECTED PRN PRN Reason: Keep Vein Open Discontinued Medications Pantoprazole Sodium 80 mg/ (Sodium Chloride) 20 mls @ 420 mls/hr IVPUSH ONETIME ONE Stop: 02/14/20 13:07 Last Admin: 02/14/20 13:52 Dose: 420 mls/hr Documented by: Lactated Ringer's (Ringers, Lactated) 1,000 mls @ 999 mls/hr IV .BOLUS ONE Stop: 02/14/20 14:50 Last Admin: 02/14/20 13:52 Dose: 999 mls/hr Documented by: Potassium Chloride (Klor-Con M20) 40 meq PO ONETIME ONE Stop: 02/16/20 07:53 Last Admin: 02/16/20 08:19 Dose: 40 meq Documented by: Sodium Chloride (Saline Flush) 10 ml FLUSH ASDIRECTED PRN PRN Reason: Keep Vein Open Sodium Chloride (Saline Flush) 2.5 ml FLUSH ASDIRECTED PRN PRN Reason: Keep Vein Open - Exam General: Reports: Alert, Oriented, Cooperative, No Acute Distress Lungs: Reports: Clear to Auscultation, Normal Respiratory Effort Cardiovascular: Reports: Regular Rate, Regular Rhythm GI/Abdominal Exam: Normal Bowel Sounds, Soft, Non-Tender Wound/Incisions: Reports: Healing Well Neurological: Reports: No New Focal Deficit Psy/Mental Status: Reports: Alert, Normal Affect, Normal Mood
[2020-02-16 11:22] VITALS: BP 153/71; PULSE 68
== END 2020-02-16 12:50 | disposition home or self-care (01) | DRG 378 ==
LOC: MW.ED 12:32 → MW.MS 15:36
PROVIDERS: ADMIT Internal Medicine; ATTEND Internal Medicine
DX: K92.0 Hematemesis (principal); K50.90 Crohn's disease, unspecified, without complications; K52.9 Noninfective gastroenteritis and colitis, unspecified; I25.10 Atherosclerotic heart disease of native coronary artery without angina pectoris; I10 Essential (primary) hypertension; E11.9 Type 2 diabetes mellitus without complications; K21.9 Gastro-esophageal reflux disease without esophagitis; Z90.49 Acquired absence of other specified parts of digestive tract; Z88.8 Allergy status to other drugs, medicaments and biological substances; Z88.5 Allergy status to narcotic agent; Z79.899 Other long term (current) drug therapy
CPT/HCPCS: 36415; 74176; 74176-26; 80048; 82962; 83690; 84484; 85014; 85018; 85025; 85610; 86900; 86901; 87045; 87046; 87324; 87338; 87449; 87899; 93005; 96374; 99221; 99231; 99238; 99283; 99285-25; A9270-GY; C9113; J0744; J3490; J7030; J7050; J7120

== ENCOUNTER 2020-03-08 08:27 | Day surgery (SDC) | payer OTHER ==
[~2020-03-08 08:27] MED LIST: Lactated Ringers 1,000 ML IV SCH
--- NOTE | 2020-03-08 09:20 | PCM.PREANE ---
Preanesthetic Assessment - Anesthesia/Transfusion/Family Hx Anesthesia History: Prior Anesthesia Without Reaction Family History of Anesthesia Reaction: No Transfusion History: Prior Transfusion Reaction Type of Transfusion Reactions: Reports: Hives Intubation History: Unknown - Review of Systems General: No Symptoms Pulmonary: No Symptoms Cardiovascular: No Symptoms Gastrointestinal: Other (hemoccult positive stools and coffee ground emesis. h/o small bowelresection and Rt. hemicolectomy for Crohn dz.) Neurological: No Symptoms Other: Reports: None - Physical Assessment Height: 4 ft 11 in Weight: 52.163 kg ASA Class: 2 Mental Status: Alert & Oriented x3 Airway Class: Mallampati = 2 Dentition: Reports: Partial (upper (removed)) Thyro-Mental Finger Breadths: 3 Mouth Opening Finger Breadths: 3 ROM/Head Extension: Full Lungs: Clear to Auscultation, Normal Respiratory Effort Cardiovascular: Regular Rate, Regular Rhythm - Allergies Allergies/Adverse Reactions: Allergies Allergy/AdvReac Type Severity Reaction Status Date / Time aspirin [From Percodan] Allergy Muscle Verified 03/04/20 13:35 Weakness cholestyramine Allergy Hives Verified 03/04/20 13:35 oxycodone HCl [From Percodan] Allergy Muscle Verified 03/04/20 13:35 Weakness oxycodone terephthalate Allergy Muscle Verified 03/04/20 13:35 [From Percodan] Weakness - Blood Blood Available: No - Anesthesia Plan Pre-Op Medication Ordered: None - Acknowledgements Anesthesia Type Planned: MAC Pt an Appropriate Candidate for the Planned Anesthesia: Yes Alternatives and Risks of Anesthesia Discussed w Pt/Guardian: Yes Pt/Guardian Understands and Agrees with Anesthesia Plan: Yes PreAnesthesia Questionnaire HEENT History: Reports: Other (See Below) Other HEENT History: wears glasses, has upper removable partial denture Cardiovascular History: Reports: Hypertension Other Cardiovascular History: Angiogram in or . No NH, no stents, asympromatic before and after Respiratory History: Reports: None Gastrointestinal History: Reports: GERD, GI Bleed, Inflammatory Bowel Disease Other Gastrointestinal History: hx of Crohns disease. 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: Reports: Musculoskeletal History: Reports: Fracture Other Musculoskeletal History: hx of fx toe Neurological History: Reports: None Psychiatric History: Reports: None Other Psychiatric History: does not have depression currently Endocrine/Metabolic History: Reports: Diabetes, Type II Other Endocrine/Metabolic History: controlled by diet and exercise, last A1c 6.3 02/17- before that was 6.0 Hematologic History: Reports: Blood Transfusion(s) Other Hematologic History: hx of blood transfusion- developed hives Immunologic History: Reports: None Oncologic (Cancer) History: Reports: None Dermatologic History: Reports: None - Infectious Disease History Infectious Disease History: Reports: None - Past Surgical History Head Surgeries/Procedures: Reports: None Cardiovascular Surgical History: Reports: Other (See Below) Other Cardiovascular Surgeries/Procedures: hx of Angiogram- no stents (patient claims angiogram not angioplasty) GI Surgical History: Reports: Cholecystectomy, Colon, Colonoscopy (at least 5), EGD (x2) Other GI Surgeries/Procedures: hx of right Hemicolectomy plus small bowel resection Female Surgical History: Reports: Section (x3), Hysterectomy, Salpingo-Oophorectomy - SUBSTANCE USE Smoking Status *Q: Never Smoker Recreational Drug Use History: No - HOME MEDS Home Medications: Home Meds Losartan/Hydrochlorothiazide [Losartan-HCTZ 100-12.5 MG] 1 each PO DAILY #30 tablet 02/16/20 [Rx] Pantoprazole Sodium [Protonix] 40 mg PO DAILY 03/04/20 [History] - CURRENT (IN HOUSE) MEDS Current Meds: Current Medications Lactated Ringer's (Ringers, Lactated) 1,000 mls @ 125 mls/hr IV ASDIRECTED [facility]
[2020-03-08] MEDS ORDERED: Propofol 200 MG/20 ML SDV ONE ×4 (09:26→11:30)
[2020-03-08] MEDS ORDERED: Lactated Ringers 1,000 ML IV SCH (11:00)
--- NOTE | 2020-03-08 11:04 | PCM.POSTAN ---
POST ANESTHESIA ASSESSMENT - MENTAL STATUS Mental Status: Alert, Oriented - VITAL SIGNS Vital Signs: Last Vital Signs Temp 37.4 C 03/08/20 10:44 Pulse 82 03/08/20 10:59 Resp 16 03/08/20 10:59 BP 133/70 03/08/20 10:59 Pulse Ox 99 03/08/20 10:59 - RESPIRATORY Respiratory Status: Respiratory Rate WNL, Airway Patent, O2 Saturation Stable - CARDIOVASCULAR CV Status: Pulse Rate WNL, Blood Pressure Stable - GASTROINTESTINAL GI Status: No Symptoms - PAIN Pain Score: 0 - POST OP HYDRATION Hydration Status: Adequate & Stable - OBSERVATIONS Free Text/Narrative:: No anesthesia problems
--- NOTE | 2020-03-08 11:18 | PCM.OPNOTE ---
- General Post-Op/Procedure Note Date of Surgery/Procedure: 03/08/20 Operative Procedure(s): Esophagogastroduodenoscopy with biopsy. Colonoscopy with perianastomotic biopsy. Pre Op Diagnosis: Hemoccult-positive stool. Coffee-ground emesis. Crohn's disease. Post-Op Diagnosis: Chronic gastritis. Anastomotic stricture. Anesthesia Technique: MAC (ASA II) Primary Surgeon: Ahsan Cha Condition: Good Free Text/Narrative:: Intake & Output 03/07/20 03/08/20 03/08/20 19:59 03:59 11:59 Intake Total 600 Balance 600 DICTATION [id number] CPT CODE [id number]
--- NOTE | 2020-03-08 11:36 | PCM48HPAN ---
Post Anesthesia Note - EVALUATION WITHIN 48HRS OF ANESTHETIC Vital Signs in Normal Range: Yes Patient Participated in Evaluation: Yes Respiratory Function Stable: Yes Airway Patent: Yes Cardiovascular Function Stable: Yes Hydration Status Stable: Yes Pain Control Satisfactory: Yes Nausea and Vomiting Control Satisfactory: Yes Mental Status Recovered: Yes Vital Signs: Last Vital Signs Temp 37.4 C 03/08/20 10:44 Pulse 82 03/08/20 10:59 Resp 16 03/08/20 10:59 BP 133/70 03/08/20 10:59 Pulse Ox 99 03/08/20 10:59 - COMMENTS/OBSERVATIONS Free Text/Narrative:: anesthesia problems
--- NOTE | 2020-03-08 12:14 | OR ---
SURGEON: Ahsan Cha M.D. DATE OF PROCEDURE: 03/08/2020 OPERATION PERFORMED: Esophagogastroduodenoscopy with biopsy. PRIMARY SURGEON: Ahsan Cha MD ANESTHESIA: MAC. ASA CLASSIFICATION: II. PREOPERATIVE DIAGNOSES: 1. Coffee-grounds emesis. 2. Hemoccult-positive stool. 3. History of Crohn disease. POSTOPERATIVE DIAGNOSIS: Mild to moderate chronic gastritis without ulceration. DESCRIPTION OF PROCEDURE: The patient was taken to the endoscopy room and positioned on the endoscopy table in the left lateral decubitus position. Time-out was called for appropriate identification of the patient and procedure. The bite block was placed between the patient's teeth. Monitored anesthesia care was provided. The gastroscope was inserted through the bite block into the oropharynx and advanced without difficulty through the esophagus and stomach into the duodenum where examination was carried out in a retrograde fashion. The duodenum showed no acute inflammatory changes or ulcerations. The stomach did show mild to moderate chronic gastritis. Antral biopsies were obtained to look for the presence of Helicobacter pylori. The gastroscope was retroflexed to visualize the proximal stomach. No mid or proximal lesions were identified and no significant hiatal hernia was noted in a retroflexed view. The gastroscope was then straightened and slowly withdrawn, carefully visualizing the greater and lesser curvatures. Again, no ulcerations were noted. The GE junction was well defined and showed no acute inflammatory changes. The esophageal mucosa appeared quite healthy. I did not see any evidence of inflammatory disease nor any ulcerations in the esophagus. It did demonstrate good contractility. As the scope was withdrawn, the vocal cords were briefly visualized. No vocal cord lesions were identified. There was no evidence of inflammatory process. The gastroscope was then withdrawn with the patient having tolerated the procedure well. Following colonoscopy, she was taken to recovery room in stable condition. MARYAM / BUBBA /[id number]
--- NOTE | 2020-03-08 13:03 | OR ---
SURGEON: Ahsan Cha M.D. DATE OF PROCEDURE: 03/08/2020 OPERATION PERFORMED: Colonoscopy with anastasia-anastomotic biopsies. PRIMARY SURGEON: Ahsan Cha MD ANESTHESIA: MAC. ASA CLASSIFICATION: II. PREOPERATIVE DIAGNOSES: 1. Hemoccult-positive stool. 2. History of Crohn disease. POSTOPERATIVE DIAGNOSIS: Anastomotic stricture. DESCRIPTION OF PROCEDURE: With the patient having completed upper GI endoscopy, she was maintained in the left lateral decubitus position. The colonoscope was inserted into the rectum and advanced with minimal difficulty to the proximal colon. The anastomosis was seen, but was tight, and I could not advance the scope through this area. There did appear to be a mild to moderate amount of inflammation present and biopsies of this area were obtained. I was able to retroflex the colonoscope and visualize the remainder of the ascending colon from below. Again, no acute inflammatory changes were noted or anything like that. The scope was then straightened and slowly withdrawn. The ascending colon, hepatic flexure, transverse colon, splenic flexure, descending colon, sigmoid colon, and rectum showed no other tumors, polyps, diverticula, or angiodysplastic changes. Once the colonoscope was withdrawn to the rectum, it was retroflexed to visualize the anal orifice from above. Again, no tumors or polyps were seen and there were no acute hemorrhoidal changes. The colonoscope was then straightened, the rectum aspirated, and the colonoscope removed. The patient tolerated the procedure well and was taken to recovery room in satisfactory condition. MARYAM / BUBBA /[id number]
[2020-03-08 13:11] VITALS: BP 132/82; PULSE 80
== END 2020-03-08 11:45 | disposition home or self-care (01) ==
LOC: MW.SDS 08:27
PROVIDERS: ATTEND Surgery
DX: K91.89 Other postprocedural complications and disorders of digestive system (principal); K29.50 Unspecified chronic gastritis without bleeding; I25.10 Atherosclerotic heart disease of native coronary artery without angina pectoris; K21.9 Gastro-esophageal reflux disease without esophagitis; I10 Essential (primary) hypertension; E11.9 Type 2 diabetes mellitus without complications; Z79.899 Other long term (current) drug therapy; Z98.890 Other specified postprocedural states; Z80.0 Family history of malignant neoplasm of digestive organs; Z87.19 Personal history of other diseases of the digestive system; Z88.8 Allergy status to other drugs, medicaments and biological substances; Z88.5 Allergy status to narcotic agent
CPT/HCPCS: 43239; 45380; J2001; J2704; J7120; 00813; 88305; 88312

== ENCOUNTER 2020-04-05 03:35 | Inpatient (IN) | payer OTHER ==
[2020-04-05] MEDS ORDERED: Sodium Chloride 0.9% 1,000 ML IV ONE (04:05)
[2020-04-05] MEDS ORDERED: Alum Hydrox/Mag Hydrox/Simeth 15 ML, Lidocaine 2% 5 ML PO ONE ×2 (04:10)
[2020-04-05] MEDS ORDERED: Morphine 4 MG/ML Syringe IVPUSH ONE (04:11)
[2020-04-05 04:27] LABS: CARBON DIOXIDE,CO2 23.9 mmol/L (21.0-32.0); POTASSIUM,K 4.4 mmol/L (3.5-5.1)
--- NOTE | 2020-04-05 05:55 | EDM.PDOC ---
<Robbie Jose - Last Filed: 04/05/20 09:44> ED HPI GENERAL MEDICAL PROBLEM - General Chief Complaint: Abdominal Pain Stated Complaint: ABDOMINAL PAIN Time Seen by Provider: 04/05/20 05:36 Source of Information: Reports: Patient History Limitations: Reports: No Limitations - Related Data Allergies Allergy/AdvReac Type Severity Reaction Status Date / Time aspirin [From Percodan] Allergy Muscle Verified 04/05/20 03:52 Weakness cholestyramine Allergy Hives Verified 04/05/20 03:52 oxycodone HCl [From Percodan] Allergy Muscle Verified 04/05/20 03:52 Weakness oxycodone terephthalate Allergy Muscle Verified 04/05/20 03:52 [From Percodan] Weakness Home Meds: Home Meds Losartan/Hydrochlorothiazide [Losartan-HCTZ 100-12.5 MG] 1 each PO DAILY #30 tablet 02/16/20 [Rx] Pantoprazole Sodium [Protonix] 40 mg PO DAILY 03/04/20 [History] ED ROS GENERAL - Review of Systems Review Of Systems: Comprehensive ROS is negative, except as noted in HPI. ED EXAM, GENERAL - Physical Exam Exam: See Below (see h and p) Departure - Departure Time of Disposition: 08:30 Disposition: Refer to Observation Condition: Good Clinical Impression: Crohn's disease, SBO (small bowel obstruction) - Discharge Information - Assessment/Plan Plan: I spoke with Dr. Jeffrey, gastroenterology at [facility], who recommended that this patient get 15 mg of Solu-Medrol every 6 hours but said that he did not believe the patient needed to be transferred. That usually with this course of steroid treatment the SBO will resolve and less than 4% of the time requires any sort of surgical intervention. Patient is not actively vomiting, has no peritoneal signs, is otherwise nontoxic in appearance. She will be admitted here with general surgery consult. Stable at time of admission. -Robbie Jose MD <Leroy Reina - Last Filed: 04/05/20 16:59> ED HPI GENERAL MEDICAL PROBLEM - History of Present Illness INITIAL COMMENTS - FREE TEXT/NARRATIVE: CHIEF COMPLAINT(S): Abdominal pain HISTORY OF PRESENT ILLNESS: This is a 60-year-old woman with a past medical history of diabetes mellitus, Crohn's disease status post 2 bowel resections who comes to the emergency department with a chief complaint of abdominal pain. The patient states that throughout the day she has been experiencing epigastric and left upper quadrant abdominal pain. She rates the pain as 6 out of 10. She denies any radiation of this pain. She has not yet tried any medications for this pain. She has no associated symptoms such as nausea or vomiting. She denies any melena or hematochezia. She denies any hematemesis or bilious emesis. She denies any chest pain or shortness of breath. REVIEW OF SYSTEMS: Constitutional: Denies fever, chills. Eyes: Denies eye pain Ears, Nose, Mouth, & Throat: Denies earache Cardiovascular: Denies chest pain Respiratory: Denies shortness of breath Gastrointestinal: Positive for abdominal pain. Denies nausea, vomiting, diarrhea, hematochezia, hematemesis, bilious emesis Genitourinary: Denies hematuria, dysuria Skin:Denies a rash Neurological: Denies blurred vision Psychiatric: Denies depression PAST MEDICAL HISTORY: As per history of present illness and as reviewed below otherwise noncontributory. SURGICAL HISTORY: As per history of present illness and as reviewed below otherwise noncontributory. SOCIAL HISTORY: As per history of present illness and as reviewed below otherwise noncontributory. FAMILY HISTORY: As per history of present illness and as reviewed below otherwise noncontributory. EXAMINATION OF ORGAN SYSTEMS/BODY AREAS: Constitutional: Blood pressure was 164/75, heart rate 108, respiratory rate 18 with an oxygen saturation 99% on room air. Temperature 35.8 General: Overall well-appearing woman who is in no acute distress Psychiatric: Appropriate mood and affect. Eyes: No scleral icterus or conjunctival erythema conjunctiva was not pale ENMT: Moist mucous membranes. No pharyngeal erythema Cardiovascular: Regular rate and rhythm. No gallops, murmurs, or rubs. Bilateral upper extremity pulses symmetric and intact. No peripheral edema. No JVD. Respiratory: Lungs clear to auscultation bilaterally. No wheezes, rales, or rhonchi. Gastrointestinal: Soft, tenderness to palpation in epigastric and left upper quadrant. Nondistended. Voluntary guarding but no rebound. Normoactive bowel sounds Genitourinary: No suprapubic tenderness Musculoskeletal: Normal range of motion. Skin: No lesions or abrasions. Neurological: Alert, GCS 15 MEDICAL DECISION MAKING AND COURSE IN THE ED WITH INTERPRETATION/REVIEW OF DIAGNOSTIC STUDIES: This is a 60-year-old woman in with a past medical history of Crohn's disease status post 2 bowel resection who comes to the emergency department with epigastric and left upper quadrant pain. Given the patient's history of Crohn's disease patient could have significant intra-abdominal pathology however differential includes peptic ulcer disease versus GERD. We will provide the patient with GI cocktail and provide the patient with Morphine IV. Will obtain labs including CBC, CMP, and coronavirus. Will obtain a CT abdomen pelvis with IV contrast for further evaluation. We will provide the patient 1 L of normal saline bolus. Laboratory: CBC reveals a leukocytosis of 15.83 with neutrophilic predominance. CMP is unremarkable except for mild hyperglycemia at 191. Coronavirus is negative. On reevaluation prior to CT the patient did import improvement in her symptoms. The radiological images were viewed by myself along with reading the report from the radiologist. CT abdomen pelvis reveals distal small bowel obstruction which is to be due to recurrent Crohn's disease just proximal to the anastomosis of the distal small bowel within the colon. This area is narrowed and hyperemic. There is biliary ductal dilation which is similar to prior. After imaging I did reevaluate the patient. I did discuss with her the results of the CT. At this time I did discuss with her that I like to talk to the surgeon here for admission. She states that her bowel resections were done by Dr. Jessica a long time ago. She states that she follows up with Dr. Riddle for and [facility]. I spoke with Dr. Paul who stated that given the patient's history of Crohn's and multiple obstructions she would be better treated by an institution that has a GI specialist. Therefore I attempted to contact [facility] in [place] where her GI doctor is however they have no beds. I also contacted [facility] in [place] in [facility] and they also do not have any beds. Therefore I contacted [facility] in [place]. DISPOSITION: At the time of signout we are pending callback from [facility] from Dr. Jeffrey. Patient was signed out to [facility] day team physician CONDITION: Fair PROCEDURES: None FINAL IMPRESSION(S)/DIAGNOSES: 1. Acute small bowel obstruction 2. Acute Crohn's flare Leroy Reina M.D. Abdomen Pain Score (Numeric/FACES): 8 Past Medical History HEENT History: Reports: Other (See Below) Other HEENT History: wears glasses, has upper removable partial denture Cardiovascular History: Reports: Hypertension Other Cardiovascular History: Angiogram in or . No SC, no stents, asympromatic before and after Respiratory History: Reports: None Gastrointestinal History: Reports: GERD, GI Bleed, Inflammatory Bowel Disease, Other (See Below) Other Gastrointestinal History: hx of Crohns disease. 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: Musculoskeletal History: Reports: Fracture Other Musculoskeletal History: hx of fx toe Neurological History: Reports: None Psychiatric History: Reports: None Other Psychiatric History: does not have depression currently Endocrine/Metabolic History: Reports: Diabetes, Type II Other Endocrine/Metabolic History: controlled by diet and exercise, last A1c 6.3 02/17- before that was 6.0 Insulin Pump Model and Bung Dropper: None Hematologic History: Reports: Blood Transfusion(s) Other Hematologic History: hx of blood transfusion- developed hives Immunologic History: Reports: None Oncologic (Cancer) History: Reports: None Dermatologic History: Reports: None - Infectious Disease History Infectious Disease History: Reports: None - Past Surgical History Head Surgeries/Procedures: Reports: None Cardiovascular Surgical History: Reports: Other (See Below) Other Cardiovascular Surgeries/Procedures: hx of Angiogram- no stents (patient claims angiogram not angioplasty) GI Surgical History: Reports: Cholecystectomy, Colon, Colonoscopy, EGD Other GI Surgeries/Procedures: hx of right Hemicolectomy plus small bowel resection Female Surgical History: Reports: Section, Hysterectomy, Salpingo- Oophorectomy Social & Family History - Family History Family Medical History: Noncontributory Cardiac: Reports: Hypertension, SC Neurological: Reports: CVA Endocrine/Metabolic: Reports: Diabetes, type II Oncologic: Reports: Breast, Colon - Tobacco Use Tobacco Use Status *Q: Never Tobacco User - Caffeine Use Caffeine Use: Reports: None - Recreational Drug Use Recreational Drug Use: No - Living Situation & Occupation Living situation: Reports: Course - Vital Signs Last Recorded V/S: Last Vital Signs Temp 36.3 C 04/05/20 16:00 Pulse 87 04/05/20 16:00 Resp 22 H 04/05/20 16:00 BP 164/77 H 04/05/20 16:00 Pulse Ox 95 04/05/20 16:00 - Orders/Labs/Meds Orders: Active Orders 24 hr Category Date Time Status Gastrointestinal Tube Mgmt [RC] ASDIRECTED Care 04/05/20 11:56 Active Intake and Output [RC] QSHIFT Care 04/05/20 08:59 Active May Shower [RC] ASDIRECTED Care 04/05/20 08:59 Active Oxygen Therapy [RC] PRN Care 04/05/20 08:59 Active Conference Director Discontinue [Cardiac Monitoring Care 04/05/20 11:35 Active Discontinue] [RC] Click to Edit Up With Assistance [RC] ASDIRECTED Care 04/05/20 08:59 Active VTE/DVT Education [RC] PER UNIT ROUTINE Care 04/05/20 08:59 Active Vital Signs [RC] Q4H Care 04/05/20 08:59 Active Nothing Per Oral Diet [DIET] Diet 04/05/20 Lunch Active BASIC METABOLIC PANEL,BMP [CHEM] AM Lab 04/06/20 05:11 Ordered BASIC METABOLIC PANEL,BMP [CHEM] AM Lab 04/07/20 05:11 Ordered BASIC METABOLIC PANEL,BMP [CHEM] AM Lab 04/08/20 05:11 Ordered C DIFFICILE AG/TOXIN W/REFLEX [RM] Urgent Lab 04/05/20 11:43 Ordered CBC WITH AUTO DIFF [HEME] AM Lab 04/06/20 05:11 Ordered CBC WITH AUTO DIFF [HEME] AM Lab 04/07/20 05:11 Ordered CBC WITH AUTO DIFF [HEME] AM Lab 04/08/20 05:11 Ordered MAGNESIUM [CHEM] AM Lab 04/06/20 05:11 Ordered MAGNESIUM [CHEM] AM Lab 04/07/20 05:11 Ordered MAGNESIUM [CHEM] AM Lab 04/08/20 05:11 Ordered Benzocaine/Cetylpyrd/Menthol [Cepacol Sore Throat] Med 04/05/20 12:03 Active 1 lozenge MUCMEM Q2H PRN Ciprofloxacin in D5W [Cipro in D5W 400 MG/200 ML] 400 Med 04/05/20 11:45 Active mg Premix Bag 1 bag IV Q12H Morphine Med 04/05/20 08:59 Active 2 mg IVPUSH Q2H PRN Ondansetron [Zofran] Med 04/05/20 08:59 Active 4 mg IVPUSH Q4H PRN Pantoprazole [ProTONIX IV] 40 mg Med 04/05/20 09:15 Active Sodium Chloride 0.9% [Normal Saline] 10 ml IV Q24H Phenol [Chloraseptic Throat [place]] Med 04/05/20 12:03 Active See Dose Instructions MUCMEM Q2H PRN Sodium Chloride 0.9% [Normal Saline] 1,000 ml Med 04/05/20 09:00 Active IV Q8H Sodium Chloride 0.9% [Saline Flush] Med 04/05/20 08:59 Active 10 ml FLUSH ASDIRECTED PRN Sodium Chloride 0.9% [Saline Flush] Med 04/05/20 08:59 Active 2.5 ml FLUSH ASDIRECTED PRN methylPREDNISolone Sod Succ [Solu-MEDROL] Med 04/05/20 14:00 Active 15 mg IV Q6H metroNIDAZOLE/Normal Saline [Flagyl 500 MG in NS 100 ML Med 04/05/20 12:00 Active ] 500 mg Premix Bag 1 bag IV QID NG [Nasogastric Orogastric Tube Insertion] [OM.PC] Oth 04/05/20 11:56 Ordered Routine Saline Lock Insert [OM.PC] Routine Oth 04/05/20 08:59 Ordered Resuscitation Status Routine Resus Stat 04/05/20 08:59 Ordered Medication Orders Benzocaine/Menthol (Cepacol Sore Throat) 1 lozenge MUCMEM Q2H PRN PRN Reason: NG tube irritation Last Admin: 04/05/20 15:46 Dose: 1 lozenge Documented by: BASILIA Enoxaparin Sodium (Lovenox) 40 mg SUBCUT Q24H [facility] Sodium Chloride (Normal Saline) 1,000 mls @ 125 mls/hr IV Q8H [facility] Last Admin: 04/05/20 10:00 Dose: 125 mls/hr Documented by: BASILIA Pantoprazole Sodium 40 mg/ (Sodium Chloride) 10 mls @ 200 mls/hr IV Q24H [facility] Last Admin: 04/05/20 12:49 Dose: 200 mls/hr Documented by: BASILIA Metronidazole 500 mg/ Premix 100 mls @ 100 mls/hr IV QID [facility] Last Admin: 04/05/20 14:26 Dose: 100 mls/hr Documented by: BASILIA Ciprofloxacin/Dextrose 400 mg/ (Premix) 200 mls @ 200 mls/hr IV Q12H [facility] Last Admin: 04/05/20 12:29 Dose: 200 mls/hr Documented by: BASILIA Lidocaine HCl (Xylocaine 2% Jelly) 30 ml GTUBE ASDIRECTED [facility] Methylprednisolone Sodium Succinate (Solu-Medrol) 15 mg IV Q6H [facility] Last Admin: 04/05/20 14:33 Dose: 15 mg Documented by: BASILIA Morphine Sulfate (Morphine) 2 mg IVPUSH Q2H PRN PRN Reason: Pain (severe 7-10) Last Admin: 04/05/20 15:21 Dose: 2 mg Documented by: Admin: 04/05/20 12:57 Dose: 2 mg Documented by: JESSE Ondansetron HCl (Zofran) 4 mg IVPUSH Q4H PRN PRN Reason: Nausea Phenol/Menthol (Chloraseptic Throat [place]) 0 ml MUCMEM Q2H PRN PRN Reason: NG tube irritation Last Admin: 04/05/20 15:47 Dose: 2 spray Documented by: BASILIA Sodium Chloride (Saline Flush) 10 ml FLUSH ASDIRECTED PRN PRN Reason: Keep Vein Open Sodium Chloride (Saline Flush) 2.5 ml FLUSH ASDIRECTED PRN PRN Reason: Keep Vein Open Labs: Laboratory Tests 04/05/20 04/05/20 04/05/20 Range/Units 03:40 03:40 04:20 WBC 15.83 H (4.0-11.0) K/uL RBC 4.77 (4.30-5.90) M/uL Hgb 13.5 (12.0-16.0) g/dL Hct 42.4 (36.0-46.0) % MCV 88.9 (80.0-98.0) fL MCH 28.3 (27.0-32.0) pg MCHC 31.8 (31.0-37.0) g/dL RDW Std Deviation 46.8 (28.0-62.0) fl RDW Coeff of Kathie 14 (11.0-15.0) % Plt Count 348 (150-400) K/uL MPV 10.60 (7.40-12.00) fL Neut % (Auto) 81.4 H (48.0-80.0) % Lymph % (Auto) 11.0 L (16.0-40.0) % [place] % (Auto) 7.1 (0.0-15.0) % Eos % (Auto) 0.4 (0.0-7.0) % Baso % (Auto) 0.1 (0.0-1.5) % Neut # (Auto) 12.9 H (1.4-5.7) K/uL Lymph # (Auto) 1.7 (0.6-2.4) K/uL [place] # (Auto) 1.1 H (0.0-0.8) K/uL Eos # (Auto) 0.1 (0.0-0.7) K/uL Baso # (Auto) 0.0 (0.0-0.1) K/uL Nucleated RBC % 0.0 /100WBC Nucleated RBCs # 0 K/uL Sodium 137 (136-145) mmol/L Potassium 4.4 (3.5-5.1) mmol/L Chloride 102 (98-107) mmol/L Carbon Dioxide 23.9 (21.0-32.0) mmol/L BUN 11 (7.0-18.0) mg/dL Creatinine 1.0 (0.6-1.0) mg/dL Est Cr Clr Drug Dosing 42.43 mL/min Estimated GFR (MDRD) 56.4 ml/min Glucose 191 H (74-106) mg/dL Calcium 9.2 (8.5-10.1) mg/dL Total Bilirubin 0.8 (0.2-1.0) mg/dL AST 34 (15-37) IU/L ALT 32 (14-63) IU/L Alkaline Phosphatase 104 (46-116) U/L Total Protein 7.6 (6.4-8.2) g/dL Albumin 3.9 (3.4-5.0) g/dL Globulin 3.7 (2.6-4.0) g/dL Albumin/Globulin Ratio 1.1 (0.9-1.6) SARS-CoV-2 RNA (ANEL) NEGATIVE (NEGATIVE) Meds: Medications Generic Name Dose Route Start Last Admin Trade Name Freq PRN Reason Stop Dose Admin Benzocaine/Menthol 1 lozenge 04/05/20 12:03 04/05/20 15:46 Cepacol Sore Throat MUCMEM 1 lozenge Q2H PRN Administration NG tube irritation Enoxaparin Sodium 40 mg 04/05/20 16:45 Lovenox SUBCUT Q24H [facility] Sodium Chloride 1,000 mls @ 125 mls/hr 04/05/20 09:00 04/05/20 10:00 Normal Saline IV 125 mls/hr Q8H PREETI Administration Pantoprazole Sodium 40 mg/ 10 mls @ 200 mls/hr 04/05/20 09:15 04/05/20 12:49 Sodium Chloride IV 200 mls/hr Q24H PREETI Administration Metronidazole 500 mg/ Premix 100 mls @ 100 mls/hr 04/05/20 12:00 04/05/20 14:26 IV 100 mls/hr QID PREETI Administration Ciprofloxacin/Dextrose 400 mg/ 200 mls @ 200 mls/hr 04/05/20 11:45 04/05/20 12:29 Premix IV 200 mls/hr Q12H PRETEI Administration Lidocaine HCl 30 ml 04/05/20 13:45 Xylocaine 2% Jelly GTUBE ASDIRECTED [facility] Methylprednisolone Sodium Succinate 15 mg 04/05/20 14:00 04/05/20 14:33 Solu-Medrol IV 15 mg Q6H PREETI Administration Morphine Sulfate 2 mg 04/05/20 08:59 04/05/20 15:21 Morphine IVPUSH 2 mg Q2H PRN Administration Pain (severe 7-10) Ondansetron HCl 4 mg 04/05/20 08:59 Zofran IVPUSH Q4H PRN Nausea Phenol/Menthol 0 ml 04/05/20 12:03 04/05/20 15:47 Chloraseptic Throat [place] MUCMEM 2 spray Q2H PRN Administration NG tube irritation Sodium Chloride 10 ml 04/05/20 08:59 Saline Flush FLUSH ASDIRECTED PRN Keep Vein Open Sodium Chloride 2.5 ml 04/05/20 08:59 Saline Flush FLUSH ASDIRECTED PRN Keep Vein Open Discontinued Medications Generic Name Dose Route Start Last Admin Trade Name Freq PRN Reason Stop Dose Admin Al Hydroxide/Mg Hydroxide 15 0 ml 04/05/20 04:10 04/05/20 04:24 ml/ Lidocaine HCl 5 ml PO 04/05/20 04:11 20 each ONETIME ONE Administration Sodium Chloride 1,000 mls @ 999 mls/hr 04/05/20 04:05 04/05/20 04:23 Normal Saline IV 04/05/20 05:05 999 mls/hr .Bolus ONE Administration Sodium Chloride 1,000 mls @ 125 mls/hr 04/05/20 07:30 04/05/20 07:41 Normal Saline IV 125 mls/hr ASDIRECTED PREETI Administration Iopamidol 100 ml 04/05/20 05:56 04/05/20 05:56 Isovue Multipack-370 (76%) IVPUSH 04/05/20 05:57 100 ml ONETIME STA Administration Lidocaine HCl 1 ml 04/05/20 11:58 04/05/20 12:46 Xylocaine 4% Top Soln MUCMEM 04/05/20 11:59 1 ml ONETIME ONE Administration Methylprednisolone Sodium Succinate 15 mg 04/05/20 08:30 04/05/20 08:38 Solu-Medrol IV 15 mg Q6H PREETI Administration Morphine Sulfate 4 mg 04/05/20 04:11 04/05/20 04:24 Morphine IVPUSH 04/05/20 04:12 4 mg ONETIME ONE Administration Sepsis Event Note (ED) - Evaluation Sepsis Screening Result: No Definite Risk - Focused Exam Vital Signs: Vital Signs Temp Pulse Resp BP Pulse Ox 04/05/20 08:59 36.2 C 84 18 144/66 H 98 04/05/20 07:24 81 20 113/82 94 L 04/05/20 05:25 89 18 126/66 99 04/05/20 05:00 86 18 133/69 97
[2020-04-05] MEDS ORDERED: Iopamidol 755 MG/ML 500 ML Multipack Bottle IVPUSH STA (05:56)
--- NOTE | 2020-04-05 06:41 | CT ---
INDICATION: Abdominal pain. History of Crohn`s disease. COMPARISON: None TECHNIQUE: CT examination of the abdomen and pelvis was performed following the uneventful intravenous administration of 100 cc of Isovue 3 7. Thin section axial images were obtained from the lung bases through the pubic symphysis. Oral contrast was not administered. Please note that all CT scans at this facility use dose modulation, iterative reconstruction, and/or weight-based dosing when appropriate to reduce radiation dose to as low as reasonably achievable. FINDINGS: LUNG BASES: The lung bases as visualized appear normal.The heart size is normal at the lung bases. LIVER/BILIARY SYSTEM:The liver is normal in size. No focal mass. There has been a cholecystectomy. There is intra and extrahepatic biliary ductal dilatation. This is more prominent than that often seen simply s/p cholecystectomy. Further evaluation of this is recommended especially if LFTs are abnormal. I see no choledocholithiasis or periampullary mass. ADRENALS: Normal KIDNEYS, URETERS and BLADDER:The kidneys appear normal. No visible mass, calculus or hydronephrosis. The ureters and bladder as visualized appear normal. SPLEEN:Normal appearance. PANCREAS: Appears normal. RETROPERITONEUM and MESENTERY: There is no mass, adenopathy or aortic aneurysm. GASTROINTESTINAL SYSTEM: There appears to been resection of a portion of the ascending colon with an ileocolonic anastomosis in the right upper quadrant. There are findings of a small bowel obstruction that is due to an area of narrowing of the distal ileum just proximal to the anastomosis. The narrowing is associated with wall thickening and hyperemia and is compatible with recurrent Crohn`s disease. The narrowed segment is relatively short, about 2 centimeters PELVIS: No mass, adenopathy or free fluid. OSSEOUS STRUCTURES and ABDOMINAL WALL: There is an age-appropriate appearance of the osseous structures.No significant abdominal wall defect. OTHER: No free fluid or free air. IMPRESSION: 1. There is a distal small-bowel obstruction. This appears to be due to recurrent Crohn`s disease just proximal to the anastomosis of the distal small bowel with the colon. This segment is narrowed and hyperemic. This segment is relatively short, measuring about 2 centimeters. 2. Biliary ductal dilatation above a generally seen simply due to a prior cholecystectomy. Follow-up evaluation recommended at a clinically appropriate time. Please note that all CT scans at this facility use dose modulation, iterative reconstruction, and/or weight-based dosing when appropriate to reduce radiation dose to as low as reasonably achievable. Dictated by Abelino Blandon MD @ Apr 05 2020 6:34AM Signed by Dr. Abelino Blandon @ Apr 05 2020 6:40AM
[2020-04-05] MEDS ORDERED: Sodium Chloride 0.9% 1,000 ML IV SCH (07:30)
[2020-04-05] MEDS ORDERED: methylPREDNISolone Sodium Succinate 125 MG/2 ML SDV IV SCH (08:00)
[2020-04-05] MEDS ORDERED: methylPREDNISolone Sodium Succinate 40 MG/1 ML SDV IV SCH (08:30)
[2020-04-05] MEDS ORDERED: Ondansetron 4 MG/2 ML SDV IVPUSH PRN (08:59)
[2020-04-05] MEDS ORDERED: Sodium Chloride 0.9% 2.5 ML Syringe FLUSH PRN (08:59)
[2020-04-05] MEDS ORDERED: Sodium Chloride 0.9% 10 ML Syringe FLUSH PRN (08:59)
--- NOTE | 2020-04-05 09:06 | PCM.HP.2 ---
H&P History of Present Illness - General Date of Service: 04/05/20 Admit Problem/Dx: Admission Diagnosis/Problem Admission Diagnosis/Problem Small bowel obstruction Source of Information: Patient History Limitations: Reports: No Limitations - History of Present Illness Initial Comments - Free Text/Narative: This 60-year-old female with past medical history of DM type II, HTN, history of cholecystectomy appendectomy and Crohn's disease not currently treated with any immunosuppression, also s/p 2 bowel resections presenting from the ER today with complaints of epigastric abdominal pain radiating to the right upper abdominal region. She reports that this pain is sharp and burning in nature. Reports it started last evening. She has not felt any nausea. She has continued to have bowel movements though they are not normal they are more loose but not diarrhea. She denies black or bloody bowel movements and no coffee-ground emesis. She reports she ate supper last night and the pain significantly worsened and has continued since then seeking evaluation today. She denies any fevers or chills at home, no chest pain or shortness of breath. She denies any focal n eurological deficits no urinary concerns. She reports that she recently had endoscopy following recent hospitalization with Dr. Cha. No acute findings noted on upper or lower endoscopies per her report. She reports that she has seen a GI specialist Dr. Riddle in [place]. She would like to see somebody closer to [place] if possible. She reports he recommended for possible medications to help treat her Crohn's but did not explain any of them and felt very left in the dark. She she previously was on Humira but had some elevation in liver enzymes which scared her so she stopped this therapy. In the ER leukocytosis noted at 15,000. She reports that he recommended BMP within normal limits glucose elevated 191 Covid swab was negative abdominal CT obtained in the ER which revealed a distal small bowel obstruction which appears to be due to recurrent Crohn's disease just proximal to the anastomosis of the distal small bowel with the colon this segment is narrowed and hyperemic r elatively short in size about 2 cm. There is biliary ductal dilation with history of previous cholecystectomy. Liver enzymes are normal no bilirubin elevation. Vital signs within the ER have been stable initially hypertensive but after pain medication she has improved. Remains on room air and is afebrile. She was given fluids in the ER as well as pain medication. Initially general surgeon on-call was notified and recommended transfer to a higher level of care. No surrounding hospitals available for transfer at this time. [facility] GI specialist did speak with the ER doctor and reviewed images. He recommended no transfer at this time but did state she needed steroid administration due to the Crohn's flare. Solu-Medrol 15 mg every 6 hours was recommended. She will be admitted to the hospitalist team for acute small bowel obstruction secondary to Crohn's disease flare. We will make her inpatient as she will likely need longer than [address] Cha general surgeon was notified of admission as patient is well-known to him. He reviewed CT and recommended NG tube for gastric decompression at least for 24 hours. Abdomen Pain Score (Numeric/FACES): 8 - Related Data Allergies/Adverse Reactions: Allergies Allergy/AdvReac Type Severity Reaction Status Date / Time aspirin [From Percodan] Allergy Muscle Verified 04/05/20 03:52 Weakness cholestyramine Allergy Hives Verified 04/05/20 03:52 oxycodone HCl [From Percodan] Allergy Muscle Verified 04/05/20 03:52 Weakness oxycodone terephthalate Allergy Muscle Verified 04/05/20 03:52 [From Percodan] Weakness Home Medications: Home Meds Losartan/Hydrochlorothiazide [Losartan-HCTZ 100-12.5 MG] 1 each PO DAILY #30 tablet 02/16/20 [Rx] Pantoprazole Sodium [Protonix] 40 mg PO DAILY 03/04/20 [History] Past Medical History HEENT History: Reports: Other (See Below) Other HEENT History: wears glasses, has upper removable partial denture Cardiovascular History: Reports: Hypertension Other Cardiovascular History: Angiogram in or . No NH, no stents, asympr omatic before and after Respiratory History: Reports: None Gastrointestinal History: Reports: GERD, GI Bleed, Inflammatory Bowel Disease, Other (See Below) Other Gastrointestinal History: hx of Crohns disease. 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: Musculoskeletal History: Reports: Fracture Other Musculoskeletal History: hx of fx toe Neurological History: Reports: None Psychiatric History: Reports: None Other Psychiatric History: does not have depression currently Endocrine/Metabolic History: Reports: Diabetes, Type II Other Endocrine/Metabolic History: controlled by diet and exercise, last A1c 6.3 02/17- before that was 6.0 Insulin Pump Model and Dental Services Director: None Hematologic History: Reports: Blood Transfusion(s) Other Hematologic History: hx of blood transfusion- developed hives Immunologic History: Reports: None Oncologic (Cancer) History: Reports: None Dermatologic History: Reports: None - Infectious Disease History Infectious Disease History: Reports: None - Past Surgical History Head Surgeries/Procedures: Reports: None Cardiovascular Surgical History: Reports: Other (See Below) Other Cardiovascular Surgeries/Procedures: hx of Angiogram- no stents (patient claims angiogram not angioplasty) GI Surgical History: Reports: Cholecystectomy, Colon, Colonoscopy, EGD Other GI Surgeries/Procedures: hx of right Hemicolectomy plus small bowel resect ion Female Surgical History: Reports: Section, Hysterectomy, Salpingo- Oophorectomy Social & Family History - Family History Family Medical History: Noncontributory Cardiac: Reports: Hypertension, [place] Neurological: Reports: CVA Endocrine/Metabolic: Reports: Diabetes, type II Oncologic: Reports: Breast, Colon - Tobacco Use Tobacco Use Status *Q: Never Tobacco User - Caffeine Use Caffeine Use: Reports: None - Alcohol Use Alcohol Use History: No - Recreational Drug Use Recreational Drug Use: No - Living Situation & Occupation Living situation: Reports: H&P Review of Systems - Review of Systems: Review Of Systems: See Below General: Reports: No Symptoms. Denies: Fever, Chills, Weakness HEENT: Reports: No Symptoms. Denies: Headaches, Sore Throat Pulmonary: Denies: Shortness of Breath Cardiovascular: Reports: No Symptoms. Denies: Chest Pain Gastrointestinal: Reports: Abdominal Pain, Decreased Appetite. Denies: Black Stool, Bloody Stool, Diarrhea (No diarrhea but stools are definitely more loose than normal), Nausea, Vomiting Genitourinary: Reports: No Symptoms. Denies: Dysuria, Frequency Skin: Reports: No Symptoms Psychiatric: Reports: No Symptoms Neurological: Reports: No Symptoms Hematologic/Lymphatic: Reports: No Symptoms Immunologic: Reports: No Symptoms Exam - Exam Exam: See Below - Vital Signs Vital Signs: Last Vital Signs Temp 96.5 F L 04/05/20 03:45 Pulse 81 04/05/20 07:24 Resp 20 04/05/20 07:24 BP 113/82 04/05/20 07:24 Pulse Ox 94 L 04/05/20 07:24 Weight: 52.617 kg - Exam Quality Assessment: DVT Prophylaxis. No: Supplemental Oxygen General: Alert, Oriented, Cooperative HEENT: Conjunctiva Clear, Mucosa Moist & Delight, Posterior Pharynx Clear Neck: Supple, Trachea Midline Lungs: Clear to Auscultation, Normal Respiratory Effort Cardiovascular: Regular Rate, Regular Rhythm GI/Abdominal Exam: Normal Bowel Sounds, Soft, No Distention, No Mass, Tender (Tenderness noted to epigastric region as well as right upper quadrant) Back Exam: Normal Inspection, Full Range of Motion Extremities: Normal Inspection, Normal Range of Motion, Non-Tender, No Pedal Edema Neurological: Cranial Nerves Intact Neuro Extensive - Mental Status: Alert, Oriented x3 Neuro Extensive - Motor, Sensory, Reflexes: CN II-XII Intact - Patient Data Lab Results Last 24 hrs: Laboratory Results - last 24 hr 04/05/20 04/05/20 04/05/20 Range/Units 03:40 03:40 04:20 WBC 15.83 H (4.0-11.0) K/uL RBC 4.77 (4.30-5.90) M/uL Hgb 13.5 (12.0-16.0) g/dL Hct 42.4 (36.0-46.0) % MCV 88.9 (80.0-98.0) fL MCH 28.3 (27.0-32.0) pg MCHC 31.8 (31.0-37.0) g/dL RDW Std Deviation 46.8 (28.0-62.0) fl RDW Coeff of Kathie 14 (11.0-15.0) % Plt Count 348 (150-400) K/uL MPV 10.60 (7.40-12.00) fL Neut % (Auto) 81.4 H (48.0-80.0) % Lymph % (Auto) 11.0 L (16.0-40.0) % [place] % (Auto) 7.1 (0.0-15.0) % Eos % (Auto) 0.4 (0.0-7.0) % Baso % (Auto) 0.1 (0.0-1.5) % Neut # (Auto) 12.9 H (1.4-5.7) K/uL Lymph # (Auto) 1.7 (0.6-2.4) K/uL [place] # (Auto) 1.1 H (0.0-0.8) K/uL Eos # (Auto) 0.1 (0.0-0.7) K/uL Baso # (Auto) 0.0 (0.0-0.1) K/uL Nucleated RBC % 0.0 /100WBC Nucleated RBCs # 0 K/uL Sodium 137 (136-145) mmol/L Potassium 4.4 (3.5-5.1) mmol/L Chloride 102 (98-107) mmol/L Carbon Dioxide 23.9 (21.0-32.0) mmol/L BUN 11 (7.0-18.0) mg/dL Creatinine 1.0 (0.6-1.0) mg/dL Est Cr Clr Drug Dosing 42.43 mL/min Estimated GFR (MDRD) 56.4 ml/min Glucose 191 H (74-106) mg/dL Calcium 9.2 (8.5-10.1) mg/dL Total Bilirubin 0.8 (0.2-1.0) mg/dL AST 34 (15-37) IU/L ALT 32 (14-63) IU/L Alkaline Phosphatase 104 (46-116) U/L Total Protein 7.6 (6.4-8.2) g/dL Albumin 3.9 (3.4-5.0) g/dL Globulin 3.7 (2.6-4.0) g/dL Albumin/Globulin Ratio 1.1 (0.9-1.6) SARS-CoV-2 RNA (ANEL) NEGATIVE (NEGATIVE) Result Diagrams: 04/05/20 03:40 04/05/20 03:40 Sepsis Event Note - Evaluation Sepsis Screening Result: No Definite Risk - Focused Exam Vital Signs: Vital Signs Temp Pulse Resp BP Pulse Ox 04/05/20 07:24 81 20 113/82 94 L 04/05/20 05:25 89 18 126/66 99 04/05/20 05:00 86 18 133/69 97 04/05/20 03:45 96.5 F L 108 H 18 164/75 H 99 - Problem List (1) SBO (small bowel obstruction) SNOMED Code(s): 498654742 ICD Code: K56.609 - UNSP INTESTNL OBST, UNSP TO PARTIAL VERSUS COMPLETE OBST Status: Acute Current Visit: Yes (2) Crohn disease SNOMED Code(s): 48469505 ICD Code: K50.90 - CROHN'S DISEASE, UNSPECIFIED, WITHOUT COMPLICATIONS Status: Chronic Current Visit: Yes (3) DM type 2 (diabetes mellitus, type 2) SNOMED Code(s): 13629594 ICD Code: E11.9 - TYPE 2 DIABETES MELLITUS WITHOUT COMPLICATIONS Status: Chronic Current Visit: No Qualifiers: Diabetes mellitus residential insulin use: without residential use Diabetes mellitus complication status: without complication Qualified Code(s): E11.9 - Type 2 diabetes mellitus without complications (4) HTN (hypertension) SNOMED Code(s): 81065063 ICD Code: I10 - ESSENTIAL (PRIMARY) HYPERTENSION Status: Chronic Current Visit: No Qualifiers: Hypertension type: essential hypertension Qualified Code(s): I10 - Es sential (primary) hypertension Problem List Initiated/Reviewed/Updated: Yes Orders Last 24hrs: Active Orders 24 hr Category Date Time Status Patient Status [ADT] Routine ADT 04/05/20 08:03 Active Intake and Output [RC] QSHIFT Care 04/05/20 08:59 Ordered May Shower [RC] ASDIRECTED Care 04/05/20 08:59 Ordered Oxygen Therapy [RC] PRN Care 04/05/20 08:59 Ordered Up With Assistance [RC] ASDIRECTED Care 04/05/20 08:59 Ordered VTE/DVT Education [RC] PER UNIT ROUTINE Care 04/05/20 08:59 Ordered Vital Signs [RC] Q4H Care 04/05/20 08:59 Ordered Nothing Per Oral Diet [DIET] Diet 04/05/20 Lunch Ordered BASIC METABOLIC PANEL,BMP [CHEM] AM Lab 04/06/20 05:11 Ordered BASIC METABOLIC PANEL,BMP [CHEM] AM Lab 04/07/20 05:11 Ordered BASIC METABOLIC PANEL,BMP [CHEM] AM Lab 04/08/20 05:11 Ordered CBC WITH AUTO DIFF [HEME] AM Lab 04/06/20 05:11 Ordered CBC WITH AUTO DIFF [HEME] AM Lab 04/07/20 05:11 Ordered CBC WITH AUTO DIFF [HEME] AM Lab 04/08/20 05:11 Ordered MAGNESIUM [CHEM] AM Lab 04/06/20 05:11 Ordered MAGNESIUM [CHEM] AM Lab 04/07/20 05:11 Ordered MAGNESIUM [CHEM] AM Lab 04/08/20 05:11 Ordered Morphine Med 04/05/20 08:59 Ordered 2 mg IVPUSH Q2H PRN Ondansetron [Zofran] Med 04/05/20 08:59 Ordered 4 mg IVPUSH Q4H PRN Pantoprazole [ProTONIX IV] Med 04/05/20 09:15 Ordered 40 mg IV Q24H Sodium Chloride 0.9% [Normal Saline] 1,000 ml Med 04/05/20 09:00 Ordered IV Q8H Sodium Chloride 0.9% [Saline Flush] Med 04/05/20 08:59 Ordered 10 ml FLUSH ASDIRECTED PRN Sodium Chloride 0.9% [Saline Flush] Med 04/05/20 08:59 Ordered 2.5 ml FLUSH ASDIRECTED PRN methylPREDNISolone Sod Succ [Solu-MEDROL] Med 04/05/20 14:00 Ordered 15 mg IV Q6H Saline Lock Insert [OM.PC] Routine Oth 04/05/20 08:59 Ordered Resuscitation Status Routine Resus Stat 04/05/20 08:59 Ordered Medication Orders Sodium Chloride (Normal Saline) 1,000 mls @ 125 mls/hr IV Q8H PREETI Methylprednisolone Sodium Succinate (Solu-Medrol) 15 mg IV Q6H PREETI Morphine Sulfate (Morphine) 2 mg IVPUSH Q2H PRN PRN Reason: Pain (severe 7-10) Ondansetron HCl (Zofran) 4 mg IVPUSH Q4H PRN PRN Reason: Nausea Pantoprazole Sodium (Protonix Iv) 40 mg IV Q24H PREETI Sodium Chloride (Saline Flush) 10 ml FLUSH ASDIRECTED PRN PRN Reason: Keep Vein Open Sodium Chloride (Saline Flush) 2.5 ml FLUSH ASDIRECTED PRN PRN Reason: Keep Vein Open Assessment/Plan Comment:: This 60-year-old female admitted with small bowel obstruction secondary to Crohn's flare 1. SBO secondary to Crohn's flare -N.p.o. for bowel rest -Place NG tube to low intermittent wall suction -Continue Solu-Medrol 15 mg every 6 hours IV per recommendations of GI specialist. -Strict I's and O's -NS at 125 MLS/HR -Morphine as needed pain -Zofran as needed nausea - Due to leukocytosis we will add Cipro every 12 IV as well as Flagyl 4 times daily IV -We will also obtain stool studies -We will need referral to GI specialist on discharge. Would like to see somebody in [place]. 2. DM type II -Blood sugar checks every 6 hours -DM is diet controlled at home -Hold off on NovoLog sliding scale at this time. 3. HTN -Monitor blood pressures hold p.o. losartan at this time due to NG tube -If blood pressures become elevated will restart. VTE prophylaxis: Lovenox Dispo: We will make inpatient as she will likely need greater than 2 midnight stay Plan discussed with Dr. Woodard - Mortality Measure Prognosis:: Good
[2020-04-05] MEDS ORDERED: Pantoprazole 40 MG Vial IV SCH (09:15)
[2020-04-05] MEDS: Sodium Chloride 0.9% 1,000 ML IV SCH ×2 (10:00→21:07)
[2020-04-05] MEDS ORDERED: Lidocaine 4% Top Soln 50 ML Bottle MUCMEM ONE (11:58)
[2020-04-05] MEDS ORDERED: Phenol 1.4% Oral Spray 177 ML Bottle MUCMEM PRN (12:03)
[2020-04-05] MEDS: Ciprofloxacin in D5W 400 MG in Premix Bag 1 BAG IV SCH ×4 (12:29→23:10)
[2020-04-05] MEDS: Pantoprazole 40 MG in Sodium Chloride 0.9% 10 ML IV SCH (12:49)
[2020-04-05] MEDS: Morphine 2 MG/ML SYRINGE IVPUSH PRN ×4 (12:57→21:11)
[2020-04-05] MEDS ORDERED: Lidocaine 2% Jelly 30 ML Tube GTUBE SCH (13:45)
[2020-04-05] MEDS: metroNIDAZOLE/Normal Saline 500 MG in Premix Bag 1 BAG IV SCH ×2 (14:26→17:12)
[2020-04-05] MEDS: methylPREDNISolone Sodium Succinate 40 MG/1 ML SDV IV SCH ×2 (14:33→21:08)
--- NOTE | 2020-04-05 15:27 | CR ---
INDICATION: NG tube placed TECHNIQUE: Supine view of COMPARISON: CT abdomen pelvis April 05, 2020 FINDINGS: There are scattered nonspecific gas filled loops of central small bowel. There is demonstration of nasogastric tube coiled within the gastric fundus, consider advancement into the distal gastric antrum by approximately 7 centimeters. Otherwise satisfactory position. There is no intra-abdominal free air or pathologic calcification. There is no acute osseous abnormality. IMPRESSION: Demonstration of nasogastric tube coiled within the gastric fundus. This is technically a satisfactory position, however further advancement into the gastric antrum may be more useful. Dictated by Denver Guzman MD @ Apr 05 2020 3:24PM Signed by Dr. Denver Guzman @ Apr 05 2020 3:26PM
[2020-04-05] MEDS: Benzocaine/Cetylpyridinium/Menthol Lozenge MUCMEM PRN ×2 (15:46→17:12)
--- NOTE | 2020-04-05 16:32 | PCM.SN.2 ---
- Free Text/Narrative Note: NG tube was placed. Patient continues to be significantly uncomfortable with tube and is requesting this to be removed. I did speak with patient that she is unwilling to continue with GEN. Approximately 300 mL has been removed through NG of dark brown liquid. Nursing updated will remove NG. Did update patient th at if she has significant nausea and vomiting we may need to consider replacement of NG. Dr. Woodard aware.
[2020-04-05] MEDS: Enoxaparin 40 MG/0.4 ML Syringe SUBCUT SCH (17:12)
[2020-04-06] MEDS: methylPREDNISolone Sodium Succinate 40 MG/1 ML SDV IV SCH ×4 (01:09→21:15)
[2020-04-06] MEDS: metroNIDAZOLE/Normal Saline 500 MG in Premix Bag 1 BAG IV SCH ×2 (01:13→06:27)
[2020-04-06] MEDS: Sodium Chloride 0.9% 1,000 ML IV SCH ×4 (01:21→22:59)
[2020-04-06] MEDS: Morphine 2 MG/ML SYRINGE IVPUSH PRN ×4 (02:19→23:03)
[2020-04-06 06:54] LABS: BLOOD UREA NITROGEN,BUN 9 mg/dL (7.0-18.0); CARBON DIOXIDE,CO2 23.8 mmol/L (21.0-32.0); CHLORIDE,CL 108 mmol/L (98-107); GLUCOSE RANDOM 140 mg/dL (74-106); POTASSIUM,K 4.5 mmol/L (3.5-5.1); SODIUM,NA 141 mmol/L (136-145)
[2020-04-06] MEDS: Pantoprazole 40 MG in Sodium Chloride 0.9% 10 ML IV SCH (09:15)
[2020-04-06] MEDS: Ciprofloxacin in D5W 400 MG in Premix Bag 1 BAG IV SCH ×2 (13:40)
[2020-04-06] MEDS: Vancomycin 125 MG Cap PO SCH ×2 (14:07→17:30)
--- NOTE | 2020-04-06 14:55 | PCM.PN ---
- General Info Date of Service: 04/06/20 - Review of Systems Systems Review Comment:: had one bowel movement today, no emesis. reports right sided abdominal pain. - Patient Data Vitals - Most Recent: Last Vital Signs Temp 36.5 C 04/06/20 12:00 Pulse 82 04/06/20 12:00 Resp 12 04/06/20 12:00 BP 139/66 04/06/20 12:00 Pulse Ox 97 04/06/20 12:00 Weight - Most Recent: 52.617 kg I&O - Last 24 Hours: Intake & Output 04/05/20 04/06/20 04/06/20 22:59 06:59 14:59 Intake Total 0 300 Output Total 1200 Balance -1200 300 Lab Results Last 24 Hours: Laboratory Results - last 24 hr 04/05/20 04/06/20 04/06/20 Range/Units 17:35 01:19 05:04 WBC 8.06 (4.0-11.0) K/uL RBC 4.14 L (4.30-5.90) M/uL Hgb 11.6 L (12.0-16.0) g/dL Hct 37.2 (36.0-46.0) % MCV 89.9 (80.0-98.0) fL MCH 28.0 (27.0-32.0) pg MCHC 31.2 (31.0-37.0) g/dL RDW Std Deviation 48.3 (28.0-62.0) fl RDW Coeff of Kathie 15 (11.0-15.0) % Plt Count 326 (150-400) K/uL MPV 10.70 (7.40-12.00) fL Neut % (Auto) 90.2 H (48.0-80.0) % Lymph % (Auto) 8.1 L (16.0-40.0) % [place] % (Auto) 1.7 (0.0-15.0) % Eos % (Auto) 0.0 (0.0-7.0) % Baso % (Auto) 0.0 (0.0-1.5) % Neut # (Auto) 7.3 H (1.4-5.7) K/uL Lymph # (Auto) 0.7 (0.6-2.4) K/uL [place] # (Auto) 0.1 (0.0-0.8) K/uL Eos # (Auto) 0.0 (0.0-0.7) K/uL Baso # (Auto) 0.0 (0.0-0.1) K/uL Nucleated RBC % 0.0 /100WBC Nucleated RBCs # 0 K/uL Sodium (136-145) mmol/L Potassium (3.5-5.1) mmol/L Chloride (98-107) mmol/L Carbon Dioxide (21.0-32.0) mmol/L BUN (7.0-18.0) mg/dL Creatinine (0.6-1.0) mg/dL Est Cr Clr Drug Dosing mL/min Estimated GFR (MDRD) ml/min Glucose (74-106) mg/dL POC Glucose 144 H 150 H (60-110) mg/dL Calcium (8.5-10.1) mg/dL Magnesium (1.8-2.4) mg/dL 04/06/20 04/06/20 04/06/20 Range/Units 05:04 06:34 12:27 WBC (4.0-11.0) K/uL RBC (4.30-5.90) M/uL Hgb (12.0-16.0) g/dL Hct (36.0-46.0) % MCV (80.0-98.0) fL MCH (27.0-32.0) pg MCHC (31.0-37.0) g/dL RDW Std Deviation (28.0-62.0) fl RDW Coeff of Kathie (11.0-15.0) % Plt Count (150-400) K/uL MPV (7.40-12.00) fL Neut % (Auto) (48.0-80.0) % Lymph % (Auto) (16.0-40.0) % [place] % (Auto) (0.0-15.0) % Eos % (Auto) (0.0-7.0) % Baso % (Auto) (0.0-1.5) % Neut # (Auto) (1.4-5.7) K/uL Lymph # (Auto) (0.6-2.4) K/uL [place] # (Auto) (0.0-0.8) K/uL Eos # (Auto) (0.0-0.7) K/uL Baso # (Auto) (0.0-0.1) K/uL Nucleated RBC % /100WBC Nucleated RBCs # K/uL Sodium 141 (136-145) mmol/L Potassium 4.5 (3.5-5.1) mmol/L Chloride 108 H (98-107) mmol/L Carbon Dioxide 23.8 (21.0-32.0) mmol/L BUN 9 (7.0-18.0) mg/dL Creatinine 0.8 (0.6-1.0) mg/dL Est Cr Clr Drug Dosing 53.04 mL/min Estimated GFR (MDRD) > 60.0 ml/min Glucose 140 H (74-106) mg/dL POC Glucose 134 H 135 H (60-110) mg/dL Calcium 8.5 (8.5-10.1) mg/dL Magnesium 2.2 (1.8-2.4) mg/dL Girish Results Last 24 Hours: Microbiology 04/06/20 06:39 C. difficile Antigen & Toxins A,B - Final Stool / Feces Med Orders - Current: Current Medications Benzocaine/Menthol (Cepacol Sore Throat) 1 lozenge MUCMEM Q2H PRN PRN Reason: NG tube irritation Last Admin: 04/05/20 17:12 Dose: 1 lozenge Documented by: Enoxaparin Sodium (Lovenox) 40 mg SUBCUT Q24H [facility] Last Admin: 04/05/20 17:12 Dose: 40 mg Documented by: Sodium Chloride (Normal Saline) 1,000 mls @ 125 mls/hr IV Q8H [facility] Last Admin: 04/06/20 06:24 Dose: 125 mls/hr Documented by: Pantoprazole Sodium 40 mg/ (Sodium Chloride) 10 mls @ 200 mls/hr IV Q24H [facility] Last Admin: 04/06/20 09:15 Dose: 200 mls/hr Documented by: Lidocaine HCl (Xylocaine 2% Jelly) 30 ml GTUBE ASDIRECTED [facility] Methylprednisolone Sodium Succinate (Solu-Medrol) 15 mg IV Q6H [facility] Last Admin: 04/06/20 14:07 Dose: 15 mg Documented by: Morphine Sulfate (Morphine) 2 mg IVPUSH Q2H PRN PRN Reason: Pain (severe 7-10) Last Admin: 04/06/20 10:44 Dose: 2 mg Documented by: Ondansetron HCl (Zofran) 4 mg IVPUSH Q4H PRN PRN Reason: Nausea Phenol/Menthol (Chloraseptic Throat Delta) 0 ml MUCMEM Q2H PRN PRN Reason: NG tube irritation Last Admin: 04/05/20 15:47 Dose: 2 spray Documented by: Sodium Chloride (Saline Flush) 10 ml FLUSH ASDIRECTED PRN PRN Reason: Keep Vein Open Sodium Chloride (Saline Flush) 2.5 ml FLUSH ASDIRECTED PRN PRN Reason: Keep Vein Open Vancomycin HCl (Vancocin 125 Mg Capsule) 125 mg PO QID [facility] Last Admin: 04/06/20 14:07 Dose: 125 mg Documented by: Discontinued Medications Al Hydroxide/Mg Hydroxide 15 (ml/ Lidocaine HCl 5 ml) 0 ml PO ONETIME ONE Stop: 04/05/20 04:11 Last Admin: 04/05/20 04:24 Dose: 20 each Documented by: Sodium Chloride (Normal Saline) 1,000 mls @ 999 mls/hr IV .Bolus ONE Stop: 04/05/20 05:05 Last Admin: 04/05/20 04:23 Dose: 999 mls/hr Documented by: Sodium Chloride (Normal Saline) 1,000 mls @ 125 mls/hr IV ASDIRECTED [facility] Last Admin: 04/05/20 07:41 Dose: 125 mls/hr Documented by: Metronidazole 500 mg/ Premix 100 mls @ 100 mls/hr IV QID [facility] Last Admin: 04/06/20 06:27 Dose: 100 mls/hr Documented by: Ciprofloxacin/Dextrose 400 mg/ (Premix) 200 mls @ 200 mls/hr IV Q12H [facility] Last Admin: 04/06/20 13:40 Dose: Not Given Documented by: Iopamidol (Isovue Multipack-370 (76%)) 100 ml IVPUSH ONETIME STA Stop: 04/05/20 05:57 Last Admin: 04/05/20 05:56 Dose: 100 ml Documented by: Lidocaine HCl (Xylocaine 4% Top Soln) 1 ml MUCMEM ONETIME ONE Stop: 04/05/20 11:59 Last Admin: 04/05/20 12:46 Dose: 1 ml Documented by: Methylprednisolone Sodium Succinate (Solu-Medrol) 15 mg IV Q6H PREETI Last Admin: 04/05/20 08:38 Dose: 15 mg Documented by: Morphine Sulfate (Morphine) 4 mg IVPUSH ONETIME ONE Stop: 04/05/20 04:12 Last Admin: 04/05/20 04:24 Dose: 4 mg Documented by: - Exam General: Alert, Oriented Neck: Supple Lungs: Clear to Auscultation, Normal Respiratory Effort Cardiovascular: Regular Rate, Regular Rhythm GI/Abdominal Exam: Soft, Non-Tender Extremities: Non-Tender, No Pedal Edema Sepsis Event Note - Evaluation Sepsis Screening Result: No Definite Risk - Focused Exam Vital Signs: Vital Signs Temp Pulse Resp BP Pulse Ox Pulse Ox 04/06/20 12:00 36.5 C 82 12 139/66 97 04/06/20 08:59 97 04/06/20 08:00 36.6 C 92 16 135/64 94 L 04/06/20 04:00 37.0 C 86 14 136/67 96 - Problem List Review Problem List Initiated/Reviewed/Updated: Yes - Plan Plan:: This 60-year-old female admitted with small bowel obstruction secondary to Crohn's flare 1. SBO secondary to Crohn's flare -N.p.o. for bowel rest this morning, if continues to improve will start diet this afternoon. -Continue Solu-Medrol 15 mg every 6 hours IV per recommendations of GI specialist. -Strict I's and O's -NS at 125 MLS/HR -Morphine as needed pain -Zofran as needed nausea -C.diff antigen positive, will stop cipro, flagyl and start PO vancomycin -We will need referral to GI specialist on discharge. Would like to see somebody in [place]. 2. DM type II -Blood sugar checks every 6 hours -DM is diet controlled at home -Hold off on NovoLog sliding scale at this time. 3. HTN -If blood pressures become elevated will restart losartan. VTE prophylaxis: Lovenox Dispo: We will make inpatient as she will likely need greater than 2 midnight stay
[2020-04-06] MEDS: Enoxaparin 40 MG/0.4 ML Syringe SUBCUT SCH (17:30)
[2020-04-07] MEDS: methylPREDNISolone Sodium Succinate 40 MG/1 ML SDV IV SCH ×4 (01:01→19:57)
[2020-04-07] MEDS: Vancomycin 125 MG Cap PO SCH ×5 (01:02→23:04)
[2020-04-07] MEDS: Sodium Chloride 0.9% 1,000 ML IV SCH ×4 (01:02→19:41)
[2020-04-07 06:49] LABS: BLOOD UREA NITROGEN,BUN 17 mg/dL (7.0-18.0); CARBON DIOXIDE,CO2 20.4 mmol/L (21.0-32.0); CHLORIDE,CL 110 mmol/L (98-107); GLUCOSE RANDOM 138 mg/dL (74-106); POTASSIUM,K 4.1 mmol/L (3.5-5.1); SODIUM,NA 142 mmol/L (136-145)
[2020-04-07] MEDS: Pantoprazole 40 MG in Sodium Chloride 0.9% 10 ML IV SCH (08:52)
[2020-04-07] MEDS ORDERED: Pantoprazole 40 MG in Sodium Chloride 0.9% 10 ML IV SCH (10:45)
[2020-04-07] MEDS: Losartan 50 MG Tab PO SCH (11:35)
--- NOTE | 2020-04-07 12:11 | PCM.PN ---
<Kim Odell - Last Filed: 04/07/20 12:03> - General Info Date of Service: 04/07/20 Admission Dx/Problem (Free Text): Admission Diagnosis/Problem Admission Diagnosis/Problem Small bowel obstruction Subjective Update: 60 Y/o F with h/o chrons dx, admitted for SBO, Had NG tube and decompression. Found to be C. Diff antigen positive but toxin negative therefore was started on vancomycin. Continued on solu-medrol. There were no overnight events. This morning pt denies any abdominal pain, nausea, vomiting, fever or chills. Functional Status: Reports: Pain Controlled - Review of Systems General: Reports: No Symptoms HEENT: Reports: No Symptoms Pulmonary: Reports: No Symptoms Cardiovascular: Reports: No Symptoms Gastrointestinal: Reports: No Symptoms Genitourinary: Reports: No Symptoms Musculoskeletal: Reports: No Symptoms Skin: Reports: No Symptoms Neurological: Reports: No Symptoms Psychiatric: Reports: No Symptoms - Patient Data Vitals - Most Recent: Last Vital Signs Temp 98.1 F 04/07/20 08:00 Pulse 73 04/07/20 08:00 Resp 18 04/07/20 08:00 BP 169/70 H 04/07/20 11:35 Pulse Ox 96 04/07/20 08:00 Weight - Most Recent: 52.617 kg I&O - Last 24 Hours: Intake & Output 04/06/20 04/07/20 04/07/20 22:59 06:59 14:59 Intake Total 2940 Balance 2940 Lab Results Last 24 Hours: Laboratory Results - last 24 hr 04/06/20 04/06/20 04/07/20 Range/Units 12:27 17:55 01:13 WBC (4.0-11.0) K/uL RBC (4.30-5.90) M/uL Hgb (12.0-16.0) g/dL Hct (36.0-46.0) % MCV (80.0-98.0) fL MCH (27.0-32.0) pg MCHC (31.0-37.0) g/dL RDW Std Deviation (28.0-62.0) fl RDW Coeff of Kathie (11.0-15.0) % Plt Count (150-400) K/uL MPV (7.40-12.00) fL Neut % (Auto) (48.0-80.0) % Lymph % (Auto) (16.0-40.0) % Lane % (Auto) (0.0-15.0) % Eos % (Auto) (0.0-7.0) % Baso % (Auto) (0.0-1.5) % Neut # (Auto) (1.4-5.7) K/uL Lymph # (Auto) (0.6-2.4) K/uL Lane # (Auto) (0.0-0.8) K/uL Eos # (Auto) (0.0-0.7) K/uL Baso # (Auto) (0.0-0.1) K/uL Nucleated RBC % /100WBC Nucleated RBCs # K/uL Sodium (136-145) mmol/L Potassium (3.5-5.1) mmol/L Chloride (98-107) mmol/L Carbon Dioxide (21.0-32.0) mmol/L BUN (7.0-18.0) mg/dL Creatinine (0.6-1.0) mg/dL Est Cr Clr Drug Dosing mL/min Estimated GFR (MDRD) ml/min Glucose (74-106) mg/dL POC Glucose 135 H 144 H 109 (60-110) mg/dL Calcium (8.5-10.1) mg/dL Magnesium (1.8-2.4) mg/dL 04/07/20 04/07/20 04/07/20 Range/Units 05:25 05:25 05:47 WBC 10.33 (4.0-11.0) K/uL RBC 3.95 L (4.30-5.90) M/uL Hgb 11.2 L (12.0-16.0) g/dL Hct 35.6 L (36.0-46.0) % MCV 90.1 (80.0-98.0) fL MCH 28.4 (27.0-32.0) pg MCHC 31.5 (31.0-37.0) g/dL RDW Std Deviation 49.2 (28.0-62.0) fl RDW Coeff of Kathie 15 (11.0-15.0) % Plt Count 304 (150-400) K/uL MPV 10.60 (7.40-12.00) fL Neut % (Auto) 88.0 H (48.0-80.0) % Lymph % (Auto) 8.1 L (16.0-40.0) % Lane % (Auto) 3.8 (0.0-15.0) % Eos % (Auto) 0.1 (0.0-7.0) % Baso % (Auto) 0.0 (0.0-1.5) % Neut # (Auto) 9.1 H (1.4-5.7) K/uL Lymph # (Auto) 0.8 (0.6-2.4) K/uL Lane # (Auto) 0.4 (0.0-0.8) K/uL Eos # (Auto) 0.0 (0.0-0.7) K/uL Baso # (Auto) 0.0 (0.0-0.1) K/uL Nucleated RBC % 0.0 /100WBC Nucleated RBCs # 0 K/uL Sodium 142 (136-145) mmol/L Potassium 4.1 (3.5-5.1) mmol/L Chloride 110 H (98-107) mmol/L Carbon Dioxide 20.4 L (21.0-32.0) mmol/L BUN 17 (7.0-18.0) mg/dL Creatinine 0.9 (0.6-1.0) mg/dL Est Cr Clr Drug Dosing 47.15 mL/min Estimated GFR (MDRD) > 60.0 ml/min Glucose 138 H (74-106) mg/dL POC Glucose 132 H (60-110) mg/dL Calcium 8.1 L (8.5-10.1) mg/dL Magnesium 1.9 (1.8-2.4) mg/dL 04/07/20 Range/Units 11:34 WBC (4.0-11.0) K/uL RBC (4.30-5.90) M/uL Hgb (12.0-16.0) g/dL Hct (36.0-46.0) % MCV (80.0-98.0) fL MCH (27.0-32.0) pg MCHC (31.0-37.0) g/dL RDW Std Deviation (28.0-62.0) fl RDW Coeff of Kathie (11.0-15.0) % Plt Count (150-400) K/uL MPV (7.40-12.00) fL Neut % (Auto) (48.0-80.0) % Lymph % (Auto) (16.0-40.0) % Lane % (Auto) (0.0-15.0) % Eos % (Auto) (0.0-7.0) % Baso % (Auto) (0.0-1.5) % Neut # (Auto) (1.4-5.7) K/uL Lymph # (Auto) (0.6-2.4) K/uL Lane # (Auto) (0.0-0.8) K/uL Eos # (Auto) (0.0-0.7) K/uL Baso # (Auto) (0.0-0.1) K/uL Nucleated RBC % /100WBC Nucleated RBCs # K/uL Sodium (136-145) mmol/L Potassium (3.5-5.1) mmol/L Chloride (98-107) mmol/L Carbon Dioxide (21.0-32.0) mmol/L BUN (7.0-18.0) mg/dL Creatinine (0.6-1.0) mg/dL Est Cr Clr Drug Dosing mL/min Estimated GFR (MDRD) ml/min Glucose (74-106) mg/dL POC Glucose 130 H (60-110) mg/dL Calcium (8.5-10.1) mg/dL Magnesium (1.8-2.4) mg/dL Girish Results Last 24 Hours: Microbiology 04/06/20 06:39 C. difficile Antigen & Toxins A,B - Final Stool / Feces Med Orders - Current: Current Medications Benzocaine/Menthol (Cepacol Sore Throat) 1 lozenge MUCMEM Q2H PRN PRN Reason: NG tube irritation Last Admin: 04/05/20 17:12 Dose: 1 lozenge Documented by: Enoxaparin Sodium (Lovenox) 40 mg SUBCUT Q24H [facility] Last Admin: 04/06/20 17:30 Dose: 40 mg Documented by: Sodium Chloride (Normal Saline) 1,000 mls @ 125 mls/hr IV Q8H [facility] Last Admin: 04/07/20 06:30 Dose: 125 mls/hr Documented by: Pantoprazole Sodium 40 mg/ (Sodium Chloride) 10 mls @ 200 mls/hr IV Q24H [facility] Last Admin: 04/07/20 08:52 Dose: 200 mls/hr Documented by: Lidocaine HCl (Xylocaine 2% Jelly) 30 ml GTUBE ASDIRECTED [facility] Losartan Potassium (Cozaar) 100 mg PO DAILY [facility] Last Admin: 04/07/20 11:35 Dose: 100 mg Documented by: Methylprednisolone Sodium Succinate (Solu-Medrol) 15 mg IV Q6H [facility] Last Admin: 04/07/20 08:50 Dose: 15 mg Documented by: Morphine Sulfate (Morphine) 2 mg IVPUSH Q2H PRN PRN Reason: Pain (severe 7-10) Last Admin: 04/06/20 23:03 Dose: 2 mg Documented by: Ondansetron HCl (Zofran) 4 mg IVPUSH Q4H PRN PRN Reason: Nausea Phenol/Menthol (Chloraseptic Throat [place]) 0 ml MUCMEM Q2H PRN PRN Reason: NG tube irritation Last Admin: 04/05/20 15:47 Dose: 2 spray Documented by: Sodium Chloride (Saline Flush) 10 ml FLUSH ASDIRECTED PRN PRN Reason: Keep Vein Open Sodium Chloride (Saline Flush) 2.5 ml FLUSH ASDIRECTED PRN PRN Reason: Keep Vein Open Vancomycin HCl (Vancocin 125 Mg Capsule) 125 mg PO QID [facility] Last Admin: 04/07/20 11:35 Dose: 125 mg Documented by: Discontinued Medications Al Hydroxide/Mg Hydroxide 15 (ml/ Lidocaine HCl 5 ml) 0 ml PO ONETIME ONE Stop: 04/05/20 04:11 Last Admin: 04/05/20 04:24 Dose: 20 each Documented by: Sodium Chloride (Normal Saline) 1,000 mls @ 999 mls/hr IV .Bolus ONE Stop: 04/05/20 05:05 Last Admin: 04/05/20 04:23 Dose: 999 mls/hr Documented by: Sodium Chloride (Normal Saline) 1,000 mls @ 125 mls/hr IV ASDIRECTED [facility] Last Admin: 04/05/20 07:41 Dose: 125 mls/hr Documented by: Metronidazole 500 mg/ Premix 100 mls @ 100 mls/hr IV QID [facility] Last Admin: 04/06/20 06:27 Dose: 100 mls/hr Documented by: Ciprofloxacin/Dextrose 400 mg/ (Premix) 200 mls @ 200 mls/hr IV Q12H [facility] Last Admin: 04/06/20 13:40 Dose: Not Given Documented by: Iopamidol (Isovue Multipack-370 (76%)) 100 ml IVPUSH ONETIME STA Stop: 04/05/20 05:57 Last Admin: 04/05/20 05:56 Dose: 100 ml Documented by: Lidocaine HCl (Xylocaine 4% Top Soln) 1 ml MUCMEM ONETIME ONE Stop: 04/05/20 11:59 Last Admin: 04/05/20 12:46 Dose: 1 ml Documented by: Methylprednisolone Sodium Succinate (Solu-Medrol) 15 mg IV Q6H [facility] Last Admin: 04/05/20 08:38 Dose: 15 mg Documented by: Morphine Sulfate (Morphine) 4 mg IVPUSH ONETIME ONE Stop: 04/05/20 04:12 Last Admin: 04/05/20 04:24 Dose: 4 mg Documented by: - Exam Quality Assessment: DVT Prophylaxis General: Alert, Oriented, Cooperative, No Acute Distress HEENT: Pupils Equal, EOMI, Mucous Membr. Moist/Sun Neck: Supple, Trachea Midline, No JVD Lungs: Clear to Auscultation, Normal Respiratory Effort Cardiovascular: Regular Rate, Regular Rhythm. No: No Murmurs, Irregular Rhythm GI/Abdominal Exam: Normal Bowel Sounds, Soft, Non-Tender, No Distention. No: Guarding, Rigid, Rebound, Mass Back Exam: Normal Inspection, Full Range of Motion Extremities: Normal Inspection, Normal Range of Motion, No Pedal Edema, Normal Capillary Refill Peripheral Pulses: 2+: Radial (L), Radial (R), Dorsalis Pedis (L), Dorsalis Pedis (R) Skin: Warm, Dry Neurological: No New Focal Deficit Psy/Mental Status: Alert, Normal Affect, Normal Mood Sepsis Event Note - Evaluation Sepsis Screening Result: No Definite Risk - Focused Exam Vital Signs: Vital Signs Temp Pulse Resp BP BP Pulse Ox Pulse Ox 04/07/20 11:35 169/70 H 04/07/20 08:00 98.1 F 73 18 162/62 H 96 96 04/07/20 04:00 97.5 F 73 16 146/70 H 95 - Problem List Review Problem List Initiated/Reviewed/Updated: Yes - My Orders Last 24 Hours: My Active Orders 04/07/20 10:45 Losartan [Cozaar] 100 mg PO DAILY 04/07/20 Lunch Clear Liquid Diet [DIET] - Plan Plan:: This 60-year-old female admitted with small bowel obstruction secondary to Crohn's flare 1. SBO secondary to Crohn's flare -Was N.p.o. for bowel rest this morning, pain has resolved, therefore will initiate clear liquid diet and advance as tolerated. -Continue Solu-Medrol 15 mg every 6 hours IV per recommendations of GI specialist. -Strict I's and O's -NS at 125 MLS/HR -Morphine as needed pain -Zofran as needed nausea -C.diff antigen positive, on vancomycin -We will need referral to GI specialist on discharge. Would like to see somebody in [place]. 2. DM type II -Blood sugar checks every 6 hours -DM is diet controlled at home -Hold off on NovoLog sliding scale at this time. 3. HTN -Elevate blood pressure this morning 146/70, will re-initiate 100mg losartan, continue to monitor and consider adding 12.5 mg HCTZ per prev home dose. VTE prophylaxis: Lovenox 40 Dispo: consider d/c once pt tolerates ADA/ Low sodium diet <Dahlia Lambert - Last Filed: 04/10/20 11:36> - General Info Admission Dx/Problem (Free Text): I have seen and evaluated the patient and agree with the residents note unless specified in my note - Patient Data Vitals - Most Recent: Last Vital Signs Temp 36.4 C 04/08/20 07:45 Pulse 62 04/08/20 07:45 Resp 18 04/08/20 07:45 BP 143/68 H 04/08/20 08:49 Pulse Ox 98 04/08/20 07:45 Girish Results Last 24 Hours: Microbiology 04/06/20 06:39 Stool Culture - Preliminary Stool / Feces Shiga Toxin I & II - Final 04/06/20 06:39 Clostridioides difficile (PCR) - Final Stool / Feces Med Orders - Current: Current Medications Discontinued Medications Benzocaine/Menthol (Cepacol Sore Throat) 1 lozenge MUCMEM Q2H PRN PRN Reason: NG tube irritation Last Admin: 04/05/20 17:12 Dose: 1 lozenge Documented by: Al Hydroxide/Mg Hydroxide 15 (ml/ Lidocaine HCl 5 ml) 0 ml PO ONETIME ONE Stop: 04/05/20 04:11 Last Admin: 04/05/20 04:24 Dose: 20 each Documented by: Enoxaparin Sodium (Lovenox) 40 mg SUBCUT Q24H [facility] Last Admin: 04/07/20 17:35 Dose: 40 mg Documented by: Hydrochlorothiazide (Hydrochlorothiazide) 12.5 mg PO DAILY [facility] Last Admin: 04/08/20 10:21 Dose: 12.5 mg Documented by: Sodium Chloride (Normal Saline) 1,000 mls @ 999 mls/hr IV .Bolus ONE Stop: 04/05/20 05:05 Last Admin: 04/05/20 04:23 Dose: 999 mls/hr Documented by: Sodium Chloride (Normal Saline) 1,000 mls @ 125 mls/hr IV ASDIRECTED [facility] Last Admin: 04/05/20 07:41 Dose: 125 mls/hr Documented by: Sodium Chloride (Normal Saline) 1,000 mls @ 125 mls/hr IV Q8H [facility] Last Admin: 04/07/20 19:41 Dose: Not Given Documented by: Pantoprazole Sodium 40 mg/ (Sodium Chloride) 10 mls @ 200 mls/hr IV Q24H [facility] Last Admin: 04/08/20 08:51 Dose: 200 mls/hr Documented by: Metronidazole 500 mg/ Premix 100 mls @ 100 mls/hr IV QID [facility] Last Admin: 04/06/20 06:27 Dose: 100 mls/hr Documented by: Ciprofloxacin/Dextrose 400 mg/ (Premix) 200 mls @ 200 mls/hr IV Q12H [facility] Last Admin: 04/06/20 13:40 Dose: Not Given Documented by: Iopamidol (Isovue Multipack-370 (76%)) 100 ml IVPUSH ONETIME STA Stop: 04/05/20 05:57 Last Admin: 04/05/20 05:56 Dose: 100 ml Documented by: Lidocaine HCl (Xylocaine 4% Top Soln) 1 ml MUCMEM ONETIME ONE Stop: 04/05/20 11:59 Last Admin: 04/05/20 12:46 Dose: 1 ml Documented by: Lidocaine HCl (Xylocaine 2% Jelly) 30 ml GTUBE ASDIRECTED [facility] Losartan Potassium (Cozaar) 100 mg PO DAILY [facility] Last Admin: 04/08/20 08:49 Dose: 100 mg Documented by: Methylprednisolone Sodium Succinate (Solu-Medrol) 15 mg IV Q6H [facility] Last Admin: 04/05/20 08:38 Dose: 15 mg Documented by: Methylprednisolone Sodium Succinate (Solu-Medrol) 15 mg IV Q6H [facility] Last Admin: 04/08/20 08:49 Dose: 15 mg Documented by: Morphine Sulfate (Morphine) 4 mg IVPUSH ONETIME ONE Stop: 04/05/20 04:12 Last Admin: 04/05/20 04:24 Dose: 4 mg Documented by: Morphine Sulfate (Morphine) 2 mg IVPUSH Q2H PRN PRN Reason: Pain (severe 7-10) Last Admin: 04/06/20 23:03 Dose: 2 mg Documented by: Ondansetron HCl (Zofran) 4 mg IVPUSH Q4H PRN PRN Reason: Nausea Phenol/Menthol (Chloraseptic Throat [place]) 0 ml MUCMEM Q2H PRN PRN Reason: NG tube irritation Last Admin: 04/05/20 15:47 Dose: 2 spray Documented by: Sodium Chloride (Saline Flush) 10 ml FLUSH ASDIRECTED PRN PRN Reason: Keep Vein Open Sodium Chloride (Saline Flush) 2.5 ml FLUSH ASDIRECTED PRN PRN Reason: Keep Vein Open Vancomycin HCl (Vancocin 125 Mg Capsule) 125 mg PO QID [facility] Last Admin: 04/08/20 06:18 Dose: 125 mg Documented by:
[2020-04-07] MEDS: Enoxaparin 40 MG/0.4 ML Syringe SUBCUT SCH (17:35)
[2020-04-08] MEDS: methylPREDNISolone Sodium Succinate 40 MG/1 ML SDV IV SCH ×2 (02:56→08:49)
[2020-04-08] MEDS: Vancomycin 125 MG Cap PO SCH (06:18)
[2020-04-08 06:32] LABS: BLOOD UREA NITROGEN,BUN 17 mg/dL (7.0-18.0); CARBON DIOXIDE,CO2 21.2 mmol/L (21.0-32.0); CHLORIDE,CL 109 mmol/L (98-107); GLUCOSE RANDOM 146 mg/dL (74-106); POTASSIUM,K 3.9 mmol/L (3.5-5.1); SODIUM,NA 140 mmol/L (136-145)
[2020-04-08 08:20] VITALS: PULSE 62
[2020-04-08] MEDS: Losartan 50 MG Tab PO SCH (08:49)
[2020-04-08] MEDS: Pantoprazole 40 MG in Sodium Chloride 0.9% 10 ML IV SCH (08:51)
[2020-04-08 08:52] VITALS: BP 143/68
[2020-04-08] MEDS ORDERED: Hydrochlorothiazide 12.5 MG Cap PO SCH (09:45)
--- NOTE | 2020-04-08 10:29 | PCM.DCSUM1 ---
Discharge Summary - Hospital Course Brief History: This 60-year-old female with past medical history of DM type II, HTN, history of cholecystectomy appendectomy and Crohn's disease not currently treated with any immunosuppression, also s/p 2 bowel resections presenting from the ER today with complaints of epigastric abdominal pain radiating to the right upper abdominal region. She reports that this pain is sharp and burning in nature. Reports it started last evening. She has not felt any nausea. She has continued to have bowel movements though they are not normal they are more loose but not diarrhea. She denies black or bloody bowel movements and no coffee- ground emesis. She reports she ate supper last night and the pain significantly worsened and has continued since then seeking evaluation today. She denies any fevers or chills at home, no chest pain or shortness of breath. She denies any focal neurological deficits no urinary concerns. She reports that she recently had endoscopy following recent hospitalization with Dr. Cha. No acute findings noted on upper or lower endoscopies per her report. She reports that she has seen a GI specialist Dr. Riddle in [place]. She would like to see somebody closer to [place] if possible. She reports he recommended for possible medications to help treat her Crohn's but did not explain any of them and felt very left in the dark. She she previously was on Humira but had some elevation in liver enzymes which scared her so she stopped this therapy. In the ER leukocytosis noted at 15,000. She reports that he recommended BMP within normal limits glucose elevated 191 Covid swab was negative abdominal CT obtained in the ER which revealed a distal small bowel obstruction which appears to be due to recurrent Crohn's disease just proximal to the anastomosis of the distal small bowel with the colon this segment is narrowed and hyperemic relatively short in size about 2 cm. There is biliary ductal dilation with history of previous cholecystectomy. Liver enzymes are normal no bilirubin elevation. Vital signs within the ER have been stable initially hypertensive but after pain medication she has improved. Remains on room air and is afebrile. She was given fluids in the ER as well as pain medication. Initially general surgeon on-call was notified and recommended transfer to a higher level of care. No surrounding hospitals available for transfer at this time. [facility] GI specialist did speak with the ER doctor and reviewed images. He recommended no transfer at this time but did state she needed steroid administration due to the Crohn's flare. Solu-Medrol 15 mg every 6 hours was recommended. She will be admitted to the hospitalist team for acute small bowel obstruction secondary to Crohn's disease flare. We will make her inpatient as she will likely need longer than [address] hCa general surgeon was notified of admission as patient is well-known to him. He reviewed CT and recommended NG tube for gastric decompression at least for 24 hours. Diagnosis: Stroke: No - Discharge Data Discharge Date: 04/08/20 Discharge Disposition: Home, Self-Care 01 Condition: Good - Referral to Home Health Primary Care Physician: Julio Recinos MD - Discharge Diagnosis/Problem(s) (1) SBO (small bowel obstruction) SNOMED Code(s): 675562038 ICD Code: K56.609 - UNSP INTESTNL OBST, UNSP TO PARTIAL VERSUS COMPLETE OBST Status: Acute (2) Crohn disease SNOMED Code(s): 50073553 ICD Code: K50.90 - CROHN'S DISEASE, UNSPECIFIED, WITHOUT COMPLICATIONS Status: Chronic (3) DM type 2 (diabetes mellitus, type 2) SNOMED Code(s): 35686731 ICD Code: E11.9 - TYPE 2 DIABETES MELLITUS WITHOUT COMPLICATIONS Status: Chronic Qualifiers: Diabetes mellitus fdc insulin use: without fdc use Diabetes bertram litus complication status: without complication Qualified Code(s): E11.9 - Type 2 diabetes mellitus without complications (4) HTN (hypertension) SNOMED Code(s): 33194307 ICD Code: I10 - ESSENTIAL (PRIMARY) HYPERTENSION Status: Chronic Qualifiers: Hypertension type: essential hypertension Qualified Code(s): I10 - Essential (primary) hypertension - Patient Summary/Data Hospital Course: Admitting diagnoses Small bowel obstruction Crohn's disease flare Discharge diagnoses Small bowel obstruction Crohn's disease flare Keisha was admitted secondary to abdominal pain and small bowel obstruction. She was started on bowel rest attempted NG gastric decompression which she did not tolerate. White count was elevated on admission she was started on Cipro and Flagyl empirically. GI specialist in [place] was contacted regarding CT findings on admission. Did not recommend transfer at that time but did recommend treatment with steroids for Crohn's flare. She was kept on Solu- Medrol 50 mg every 6 hours and has tolerated this well. Stool studies were obtained which showed antigen positive C. difficile. She had mild loose stools on admission. She was started on vancomycin 125 mg twice daily. At this time Cipro and Flagyl were discontinued. She slowly improved with the bowel rest and was advanced to clear liquid then soft diet which she has tolerated well. Today she is feeling significantly improved and is requesting discharge. I will arrange for follow-up with a GI specialist and [place] per her request. She was highly encouraged to start taking immunosuppression when advised via GI specialist. She is to continue taking vancomycin tablets for another 12 days total 14-day treatment. I will also continue her on a slow prednisone taper for Crohn's. She is to follow-up with PCP in 1 week and referral was sent for GI specialist in [place]. - Patient Instructions Diet: GI Soft/Low Residue/Low Fiber Activity: As Tolerated, No Strenuous Activities Driving: May Drive Today Showering/Bathing: May Shower Notify Provider of: Fever, Increased Pain, Swelling and Redness, Drainage, Nausea and/or Vomiting - Discharge Plan *PRESCRIPTION DRUG MONITORING PROGRAM REVIEWED*: Not Applicable *COPY OF PRESCRIPTION DRUG MONITORING REPORT IN PATIENT ROBBIE: Not Applicable Prescriptions/Med Rec: predniSONE [Prednisone] 10 - 40 mg PO DAILY #70 tablet Vancomycin [Vancocin 125 MG Capsule] 125 mg PO QID #48 cap Home Medications: Home Meds Losartan/Hydrochlorothiazide [Losartan-HCTZ 100-12.5 MG] 1 each PO DAILY #30 tablet 02/16/20 [Rx] Pantoprazole Sodium [Protonix] 40 mg PO DAILY 03/04/20 [History] Vancomycin [Vancocin 125 MG Capsule] 125 mg PO QID #48 cap 04/08/20 [Rx] predniSONE [Prednisone] 10 - 40 mg PO DAILY #70 tablet 04/08/20 [Rx] Oxygen Therapy Mode: Room Air Patient Handouts: Bowel Obstruction, [id number], Clostridioides Difficile Infection, [id number], Prednisone tablets, Vancomycin capsules, Crohn's Disease Referrals: Lu Huerta NP [Ordering Only Provider] - 04/18/20 1:30 pm () Julio Recinos MD [Primary Care Provider] - 04/15/20 2:00 pm (Please arrive 15mins early, bring ID, insurance information and own mask.) - Discharge Summary/Plan Comment DC Time >30 min.: No - Patient Data Vitals - Most Recent: Last Vital Signs Temp 97.5 F 04/08/20 07:45 Pulse 62 04/08/20 07:45 Resp 18 04/08/20 07:45 BP 143/68 H 04/08/20 08:49 Pulse Ox 98 04/08/20 07:45 Weight - Most Recent: 52.617 kg I&O - Last 24 hours: Intake & Output 04/07/20 04/08/20 04/08/20 22:59 06:59 14:59 Intake Total 480 1500 Output Total 920 1550 Balance -440 -50 Lab Results - Last 24 hrs: Laboratory Results - last 24 hr 04/07/20 04/07/20 04/07/20 Range/Units 05:25 11:34 19:11 WBC (4.0-11.0) K/uL RBC (4.30-5.90) M/uL Hgb (12.0-16.0) g/dL Hct (36.0-46.0) % MCV (80.0-98.0) fL MCH (27.0-32.0) pg MCHC (31.0-37.0) g/dL RDW Std Deviation (28.0-62.0) fl RDW Coeff of Kathie (11.0-15.0) % Plt Count (150-400) K/uL MPV (7.40-12.00) fL Neut % (Auto) (48.0-80.0) % Lymph % (Auto) (16.0-40.0) % [place] % (Auto) (0.0-15.0) % Eos % (Auto) (0.0-7.0) % Baso % (Auto) (0.0-1.5) % Neut # (Auto) (1.4-5.7) K/uL Lymph # (Auto) (0.6-2.4) K/uL [place] # (Auto) (0.0-0.8) K/uL Eos # (Auto) (0.0-0.7) K/uL Baso # (Auto) (0.0-0.1) K/uL Nucleated RBC % /100WBC Nucleated RBCs # K/uL Sodium (136-145) mmol/L Potassium (3.5-5.1) mmol/L Chloride (98-107) mmol/L Carbon Dioxide (21.0-32.0) mmol/L BUN (7.0-18.0) mg/dL Creatinine (0.6-1.0) mg/dL Est Cr Clr Drug Dosing mL/min Estimated GFR (MDRD) ml/min Glucose (74-106) mg/dL POC Glucose 130 H 215 H (60-110) mg/dL Calcium (8.5-10.1) mg/dL Phosphorus 3.2 (2.6-4.7) mg/dL Magnesium (1.8-2.4) mg/dL Total Bilirubin (0.2-1.0) mg/dL AST (15-37) IU/L ALT (14-63) IU/L Alkaline Phosphatase (46-116) U/L Total Protein (6.4-8.2) g/dL Albumin (3.4-5.0) g/dL Globulin (2.6-4.0) g/dL Albumin/Globulin Ratio (0.9-1.6) 04/08/20 04/08/20 04/08/20 Range/Units 05:45 05:45 06:19 WBC 8.33 (4.0-11.0) K/uL RBC 4.16 L (4.30-5.90) M/uL Hgb 11.7 L (12.0-16.0) g/dL Hct 37.2 (36.0-46.0) % MCV 89.4 (80.0-98.0) fL MCH 28.1 (27.0-32.0) pg MCHC 31.5 (31.0-37.0) g/dL RDW Std Deviation 48.4 (28.0-62.0) fl RDW Coeff of Kathie 15 (11.0-15.0) % Plt Count 277 (150-400) K/uL MPV 10.70 (7.40-12.00) fL Neut % (Auto) 83.1 H (48.0-80.0) % Lymph % (Auto) 10.1 L (16.0-40.0) % [place] % (Auto) 6.8 (0.0-15.0) % Eos % (Auto) 0.0 (0.0-7.0) % Baso % (Auto) 0.0 (0.0-1.5) % Neut # (Auto) 6.9 H (1.4-5.7) K/uL Lymph # (Auto) 0.8 (0.6-2.4) K/uL [place] # (Auto) 0.6 (0.0-0.8) K/uL Eos # (Auto) 0.0 (0.0-0.7) K/uL Baso # (Auto) 0.0 (0.0-0.1) K/uL Nucleated RBC % 0.0 /100WBC Nucleated RBCs # 0 K/uL Sodium 140 (136-145) mmol/L Potassium 3.9 (3.5-5.1) mmol/L Chloride 109 H (98-107) mmol/L Carbon Dioxide 21.2 (21.0-32.0) mmol/L BUN 17 (7.0-18.0) mg/dL Creatinine 0.9 (0.6-1.0) mg/dL Est Cr Clr Drug Dosing 47.15 mL/min Estimated GFR (MDRD) > 60.0 ml/min Glucose 146 H (74-106) mg/dL POC Glucose 157 H (60-110) mg/dL Calcium 8.4 L (8.5-10.1) mg/dL Phosphorus 3.0 (2.6-4.7) mg/dL Magnesium 2.0 (1.8-2.4) mg/dL Total Bilirubin 0.4 (0.2-1.0) mg/dL AST 14 L (15-37) IU/L ALT 23 (14-63) IU/L Alkaline Phosphatase 63 (46-116) U/L Total Protein 5.9 L (6.4-8.2) g/dL Albumin 2.8 L (3.4-5.0) g/dL Globulin 3.1 (2.6-4.0) g/dL Albumin/Globulin Ratio 0.9 (0.9-1.6) Med Orders - Current: Current Medications Benzocaine/Menthol (Cepacol Sore Throat) 1 lozenge MUCMEM Q2H PRN PRN Reason: NG tube irritation Last Admin: 04/05/20 17:12 Dose: 1 lozenge Documented by: Enoxaparin Sodium (Lovenox) 40 mg SUBCUT Q24H [facility] Last Admin: 04/07/20 17:35 Dose: 40 mg Documented by: Hydrochlorothiazide (Hydrochlorothiazide) 12.5 mg PO DAILY [facility] Last Admin: 04/08/20 10:21 Dose: 12.5 mg Documented by: Pantoprazole Sodium 40 mg/ (Sodium Chloride) 10 mls @ 200 mls/hr IV Q24H [facility] Last Admin: 04/08/20 08:51 Dose: 200 mls/hr Documented by: Lidocaine HCl (Xylocaine 2% Jelly) 30 ml GTUBE ASDIRECTED [facility] Losartan Potassium (Cozaar) 100 mg PO DAILY [facility] Last Admin: 04/08/20 08:49 Dose: 100 mg Documented by: Methylprednisolone Sodium Succinate (Solu-Medrol) 15 mg IV Q6H [facility] Last Admin: 04/08/20 08:49 Dose: 15 mg Documented by: Morphine Sulfate (Morphine) 2 mg IVPUSH Q2H PRN PRN Reason: Pain (severe 7-10) Last Admin: 04/06/20 23:03 Dose: 2 mg Documented by: Ondansetron HCl (Zofran) 4 mg IVPUSH Q4H PRN PRN Reason: Nausea Phenol/Menthol (Chloraseptic Throat Foley) 0 ml MUCMEM Q2H PRN PRN Reason: NG tube irritation Last Admin: 04/05/20 15:47 Dose: 2 spray Documented by: Sodium Chloride (Saline Flush) 10 ml FLUSH ASDIRECTED PRN PRN Reason: Keep Vein Open Sodium Chloride (Saline Flush) 2.5 ml FLUSH ASDIRECTED PRN PRN Reason: Keep Vein Open Vancomycin HCl (Vancocin 125 Mg Capsule) 125 mg PO QID [facility] Last Admin: 04/08/20 06:18 Dose: 125 mg Documented by: Discontinued Medications Al Hydroxide/Mg Hydroxide 15 (ml/ Lidocaine HCl 5 ml) 0 ml PO ONETIME ONE Stop: 04/05/20 04:11 Last Admin: 04/05/20 04:24 Dose: 20 each Documented by: Sodium Chloride (Normal Saline) 1,000 mls @ 999 mls/hr IV .Bolus ONE Stop: 04/05/20 05:05 Last Admin: 04/05/20 04:23 Dose: 999 mls/hr Documented by: Sodium Chloride (Normal Saline) 1,000 mls @ 125 mls/hr IV ASDIRECTED [facility] Last Admin: 04/05/20 07:41 Dose: 125 mls/hr Documented by: Sodium Chloride (Normal Saline) 1,000 mls @ 125 mls/hr IV Q8H [facility] Last Admin: 04/07/20 19:41 Dose: Not Given Documented by: Metronidazole 500 mg/ Premix 100 mls @ 100 mls/hr IV QID [facility] Last Admin: 04/06/20 06:27 Dose: 100 mls/hr Documented by: Ciprofloxacin/Dextrose 400 mg/ (Premix) 200 mls @ 200 mls/hr IV Q12H [facility] Last Admin: 04/06/20 13:40 Dose: Not Given Documented by: Iopamidol (Isovue Multipack-370 (76%)) 100 ml IVPUSH ONETIME STA Stop: 04/05/20 05:57 Last Admin: 04/05/20 05:56 Dose: 100 ml Documented by: Lidocaine HCl (Xylocaine 4% Top Soln) 1 ml MUCMEM ONETIME ONE Stop: 04/05/20 11:59 Last Admin: 04/05/20 12:46 Dose: 1 ml Documented by: Methylprednisolone Sodium Succinate (Solu-Medrol) 15 mg IV Q6H [facility] Last Admin: 04/05/20 08:38 Dose: 15 mg Documented by: Morphine Sulfate (Morphine) 4 mg IVPUSH ONETIME ONE Stop: 04/05/20 04:12 Last Admin: 04/05/20 04:24 Dose: 4 mg Documented by:
== END 2020-04-08 12:16 | disposition home or self-care (01) | DRG 387 ==
LOC: MW.ED 03:35 → MW.MS 08:30 → OBSVTOIN 12:04 → MW.MS 12:05
PROVIDERS: ADMIT Internal Medicine; ATTEND Internal Medicine
PROC: 0D9670Z Drainage of Stomach with Drainage Device, Via Natural or Artificial Opening (ICD-10-PCS; principal; 2020-04-05)
DX: K50.012 Crohn's disease of small intestine with intestinal obstruction (principal); E11.9 Type 2 diabetes mellitus without complications; I10 Essential (primary) hypertension; K21.9 Gastro-esophageal reflux disease without esophagitis; Z20.828 Contact with and (suspected) exposure to other viral communicable diseases; Z79.811 Long term (current) use of aromatase inhibitors; Z79.899 Other long term (current) drug therapy; Z79.2 Long term (current) use of antibiotics; Z79.52 Long term (current) use of systemic steroids; Z90.49 Acquired absence of other specified parts of digestive tract; Z90.89 Acquired absence of other organs; Z88.6 Allergy status to analgesic agent; Z88.5 Allergy status to narcotic agent; Z88.8 Allergy status to other drugs, medicaments and biological substances; Z90.711 Acquired absence of uterus with remaining cervical stump; Z82.3 Family history of stroke; Z82.49 Family history of ischemic heart disease and other diseases of the circulatory system
CPT/HCPCS: 36415; 74018; 74018-26; 74177; 74177-26; 80048; 80053; 82962; 83735; 84100; 85025; 87045; 87046; 87324; 87449; 87493; 87899; 96374; 99222; 99231; 99238; 99284; 99285-25; A9270-GY; C9113; J0744; J1650; J2270; J2920; J3490; J7030; Q9967; U0002

== ENCOUNTER 2020-09-15 20:09 | Emergency (ER) | payer OTHER ==
[2020-09-15] MEDS ORDERED: Sodium Chloride 0.9% 2.5 ML Syringe FLUSH PRN (20:24)
[2020-09-15] MEDS ORDERED: Sodium Chloride 0.9% 1,000 ML IV ONE (20:24)
[2020-09-15] MEDS ORDERED: Sodium Chloride 0.9% 10 ML Syringe FLUSH PRN (20:24)
[2020-09-15] MEDS ORDERED: fentaNYL 50 MCG/ML SDV IVPUSH ONE ×2 (20:24→22:25)
[2020-09-15] MEDS ORDERED: Ondansetron 4 MG/2 ML SDV IVPUSH ONE (20:24)
[2020-09-15 20:55] LABS: CARBON DIOXIDE,CO2 16.8 mmol/L (21.0-32.0); POTASSIUM,K 2.9 mmol/L (3.5-5.1)
[2020-09-15] MEDS ORDERED: Potassium Chloride 10% 20 MEQ/15 ML Soln 30 ML UD Cup PO ONE (21:09)
[2020-09-15] MEDS ORDERED: Iopamidol 755 MG/ML 500 ML Multipack Bottle IVPUSH STA (21:39)
--- NOTE | 2020-09-15 22:21 | CT ---
Indication: History of Crohn`s. Recent bowel resections. Technique: Multiple contiguous axial images were obtained from the lung bases through the symphysis pubis after the intravenous administration of 80 milliliters Isovue 370. Please note that all CT scans at this facility use dose modulation, iterative reconstruction, and/or weight-based dosing when appropriate to reduce radiation dose to as low as reasonably achievable. Comparison: None Findings: The lung bases are clear. No infiltrate, pleural effusion, or pneumothorax is identified. The heart is normal in size. No pericardial effusions identified. The liver, spleen, pancreas, adrenals, and kidneys are normal. Postsurgical changes of cholecystectomy are identified. Mild intrahepatic biliary ductal dilatation is identified. Extrahepatic biliary ductal dilatation is identified. The kidneys are normal. No hydronephrosis is identified. Small bilateral cysts are identified. In the pelvis, thickening of the wall of the urinary bladder is identified, lack of complete distention versus a true finding. No uterus is identified. Postoperative changes of the ascending colon are identified. Diffuse thickening of the wall of the terminal ileum and proximal ascending colon is identified. Questionable thickening of the wall of the sigmoid colon is also identified. Aorta is normal in caliber. No free air or free fluid is identified within the abdomen or pelvis. Impression: Thickening of the wall of the distal ileum and possibly of the proximal ascending colon. This is consistent with the patient`s known history of Crohn`s disease. Questionable thickening of the sigmoid colon and rectum. No other acute findings. Please note that all CT scans at this facility use dose modulation, iterative reconstruction, and/or weight-based dosing when appropriate to reduce radiation dose to as low as reasonably achievable. Dictated by Margarita Lee MD @ Sep 15 2020 10:08PM Signed by Dr. Margarita Lee @ Sep 15 2020 10:19PM
[2020-09-15] MEDS ORDERED: Ketorolac 15 MG/ML SDV IVPUSH STA (22:25)
--- NOTE | 2020-09-15 22:37 | EDM.PDOC ---
ED HPI GENERAL MEDICAL PROBLEM - General Chief Complaint: Gastrointestinal Problem Stated Complaint: INTESTINAL PAIN Time Seen by Provider: 09/15/20 20:18 - History of Present Illness INITIAL COMMENTS - FREE TEXT/NARRATIVE: HISTORY AND PHYSICAL: History of present illness: This is a 60-year-old female with a history significant for type 2 diabetes, hypertension, status post cholecystectomy, status post appendectomy, history of Crohn's disease, status post bowel resection approximately 3 weeks ago at [facility], status post bowel resection x2 in the distant past, who presents ER today complaining of upper abdominal discomfort. Patient reports that the pain started approximate 1 to 2 days ago. Patient reports after surgery 3 weeks ago she was doing well was not having any significant problems. Patient reports that approximately 2 to 3 days ago she started experiencing abdominal discomfort as well as diarrhea. Patient reports that she has approximately 5-6 loose watery bowel movements daily which is new for her. Patient reports she is currently not on any antibiotics. Patient denies any melena or bright red blood per rectum. Patient has any vomiting but she reports she is nauseous. Patient has any chest pain or shortness of breath. Patient denies any dysuria, frequency, urgency. Review of systems: As per history of present illness and below otherwise all systems reviewed and negative. Past medical history: As per history of present illness and as reviewed below otherwise noncontributory. Surgical history: As per history of present illness and as reviewed below otherwise noncontributory. Social history: No reported history of drug or alcohol abuse. Family history: As per history of present illness and as reviewed below otherwise noncontributory. Physical exam: This patient was seen and evaluated during the 2019 SARS-CoV-2 novel coronavirus pandemic period. Community viral transmission is ongoing at time of this encounter and the emergency department is operating under pandemic response procedures. Constitutional: Patient is oriented to person, place, and time. Appears well- developed and well-nourished. No distress. HEENT: Moist mucous membranes Head: Normocephalic and atraumatic Eyes: Right eye exhibits no discharge. Left eye exhibits no discharge. No scleral icterus Neck: Normal range of motion. No tracheal deviation present. Cardiovascular: Normal rate and regular rhythm. Pulmonary: Effort normal, no respiratory distress. Abd: Soft, nondistended, no rebound/guarding, no psoas or obturator signs, no tenderness at Mcberney's point, no Couch's sign. Pt does not present with an exam that would be consistent with an acute surgical abdomen at this time, mild tenderness palpation in the left and right upper quadrants. Patient has no tenderness in her lower abdomen. Patient's incision sites are clean and dry. Patient does have a small suture exiting one of her suture sites. Musculoskeletal: Normal range of motion Neurologic: Alert and oriented to person, place and time. Skin: [place], warm and dry. Psychiatric: Normal mood and affect. Behavior is normal. Judgment and thought content normal. Nursing note and vital signs have been reviewed Diagnostics: CBC, CMP, lipase within normal limits except for evidence of hypokalemia. Patient's lactic acid level is normal. Patient's anion gap and bicarb are normal. Patient's WBC count is normal. Patient CT scan did not show any evidence of acute pathology to explain the patient's abdominal discomfort. Therapeutics: Patient was given a dose of fentanyl 50 mg IV with some relief in her discomfort. Patient reports that the pain was returning once again. Patient was redosed with fentanyl 100 mcg IV and Toradol 15 mg IV. Assessment and plan: 60-year-old female who presents ER today with nausea and diarrhea x1 to 2 days. Patient is status post bowel resection at the [facility] approximately 3 weeks ago. Patient's ER work-up is been unremarkable except for hypokalemia. Patient CT scan of her abdomen pelvis were unremarkable. This was performed with IV contrast. I have discussed with the patient given the normal results that we will likely discharge her to home with aches and analgesics and have her follow- up with her primary care physician in the next 2 to 3 days for reevaluation and further outpatient management of her pain. This does not appear to be consiste nt with flareups. Patient CT scan shows thickening of the bowel wall without any inflammatory changes. Reassessment at the time of disposition demonstrates that the patient is in no acute distress. The patient has remained stable throughout the entire ED visit and is without objective evidence for acute process requiring urgent intervention or hospitalization. The patient is stable for discharge, counseling is provided as documented above, discussed symptomatic treatment and specific conditions for return. I have spoken with the patient/caregiver and discussed todays findings, in addition to providing specific details for the plan of care. Questions are answered and there is agreement with the plan. Definitive disposition and diagnosis as appropriate pending reevaluation and review of above. abdomen Pain Score (Numeric/FACES): 2 - Related Data Allergies Allergy/AdvReac Type Severity Reaction Status Date / Time aspirin [From Percodan] Allergy Muscle Verified 09/15/20 20:32 Weakness cholestyramine Allergy Hives Verified 09/15/20 20:32 oxycodone HCl [From Percodan] Allergy Muscle Verified 09/15/20 20:32 Weakness oxycodone terephthalate Allergy Muscle Verified 09/15/20 20:32 [From Percodan] Weakness Home Meds: Home Meds Losartan/Hydrochlorothiazide [Losartan-HCTZ 100-12.5 MG] 1 each PO DAILY #30 tablet 02/16/20 [Rx] Ondansetron [Zofran ODT] 4 mg PO Q6H PRN #12 tab.dis 09/15/20 [Rx] traMADol [Ultram] 50 mg PO Q6H PRN #12 tab 09/15/20 [Rx] Past Medical History HEENT History: Reports: Other (See Below) Other HEENT History: wears glasses, has upper removable partial denture Cardiovascular History: Reports: Hypertension Other Cardiovascular History: Angiogram in or . No LA, no stents, asymptomatic before and after Respiratory History: Reports: None Gastrointestinal History: Reports: GERD, GI Bleed, Inflammatory Bowel Disease, Other (See Below) Other Gastrointestinal History: hx of Crohns disease. 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: Musculoskeletal History: Reports: Fracture Other Musculoskeletal History: hx of fx toe Neurological History: Reports: None Psychiatric History: Reports: None Other Psychiatric History: does not have depression currently Endocrine/Metabolic History: Reports: Diabetes, Type II Other Endocrine/Metabolic History: controlled by diet and exercise Insulin Pump Model and Sales Office Assistant: None Hematologic History: Reports: Blood Transfusion(s) Other Hematologic History: hx of blood transfusion- developed hives Immunologic History: Reports: None Oncologic (Cancer) History: Reports: None Dermatologic History: Reports: None - Infectious Disease History Infectious Disease History: Reports: None - Past Surgical History Head Surgeries/Procedures: Reports: None HEENT Surgical History: Reports: None Cardiovascular Surgical History: Reports: Other (See Below) Other Cardiovascular Surgeries/Procedures: hx of Angiogram- no stents (patient claims angiogram not angioplasty) Respiratory Surgical History: Reports: None GI Surgical History: Reports: Cholecystectomy, Colon, Colonoscopy, EGD Other GI Surgeries/Procedures: hx of right Hemicolectomy plus small bowel resection Female Surgical History: Reports: Section, Hysterectomy, Salpingo- Oophorectomy Other Female Surgeries/Procedures: Cystoscopy Endocrine Surgical History: Reports: None Neurological Surgical History: Reports: None Musculoskeletal Surgical History: Reports: None Oncologic Surgical History: Reports: None Dermatological Surgical History: Reports: None Social & Family History - Family History Family Medical History: No Pertinent Family History Cardiac: Reports: Hypertension, LA Neurological: Reports: CVA Endocrine/Metabolic: Reports: Diabetes, type II Oncologic: Reports: Breast, Colon - Tobacco Use Tobacco Use Status *Q: Never Tobacco User - Caffeine Use Caffeine Use: Reports: None - Recreational Drug Use Recreational Drug Use: No - Living Situation & Occupation Living situation: Reports: ED ROS GENERAL - Review of Systems Review Of Systems: See Below ED EXAM, GENERAL - Physical Exam Exam: See Below Course - Vital Signs Last Recorded V/S: Last Vital Signs Temp 98.1 F 09/15/20 20:28 Pulse 96 09/15/20 21:56 Resp 18 09/15/20 21:56 BP 146/53 H 09/15/20 21:56 Pulse Ox 97 09/15/20 21:56 - Orders/Labs/Meds Orders: Active Orders 24 hr Category Date Time Status Sodium Chloride 0.9% [Saline Flush] Med 09/15/20 20:24 Active 10 ml FLUSH ASDIRECTED PRN Sodium Chloride 0.9% [Saline Flush] Med 09/15/20 20:24 Active 2.5 ml FLUSH ASDIRECTED PRN Saline Lock Insert [OM.PC] Stat Oth 09/15/20 20:24 Ordered Medication Orders Sodium Chloride (Sodium Chloride 0.9% 10 Ml Syringe) 10 ml FLUSH ASDIRECTED PRN PRN Reason: Keep Vein Open Last Admin: 09/15/20 20:33 Dose: 10 ml Documented by: EDWARD Sodium Chloride (Sodium Chloride 0.9% 2.5 Ml Syringe) 2.5 ml FLUSH ASDIRECTED PRN PRN Reason: Keep Vein Open Last Admin: 09/15/20 20:33 Dose: 2.5 ml Documented by: [id number] Labs: Laboratory Tests 09/15/20 09/15/20 09/15/20 Range/Units 20:25 20:25 20:25 WBC 9.55 (4.0-11.0) K/uL RBC 4.79 (4.30-5.90) M/uL Hgb 12.8 (12.0-16.0) g/dL Hct 39.1 (36.0-46.0) % MCV 81.6 (80.0-98.0) fL MCH 26.7 L (27.0-32.0) pg MCHC 32.7 (31.0-37.0) g/dL RDW Std Deviation 40.3 (28.0-62.0) fl RDW Coeff of Kathie 13 (11.0-15.0) % Plt Count 454 H (150-400) K/uL MPV 10.10 (7.40-12.00) fL Neut % (Auto) 62.3 (48.0-80.0) % Lymph % (Auto) 20.7 (16.0-40.0) % [place] % (Auto) 16.1 H (0.0-15.0) % Eos % (Auto) 0.6 (0.0-7.0) % Baso % (Auto) 0.3 (0.0-1.5) % Neut # (Auto) 5.9 H (1.4-5.7) K/uL Lymph # (Auto) 2.0 (0.6-2.4) K/uL [place] # (Auto) 1.5 H (0.0-0.8) K/uL Eos # (Auto) 0.1 (0.0-0.7) K/uL Baso # (Auto) 0.0 (0.0-0.1) K/uL Nucleated RBC % 0.0 /100WBC Nucleated RBCs # 0 K/uL Lactate 1.3 (0.20-2.00) mmol/L Sodium 138 (136-145) mmol/L Potassium 2.9 L (3.5-5.1) mmol/L Chloride 104 (98-107) mmol/L Carbon Dioxide 16.8 L (21.0-32.0) mmol/L BUN 20 H (7.0-18.0) mg/dL Creatinine 1.2 H (0.6-1.0) mg/dL Est Cr Clr Drug Dosing 37.15 mL/min Estimated GFR (MDRD) 45.7 ml/min Glucose 160 H (74-106) mg/dL Calcium 9.0 (8.5-10.1) mg/dL Phosphorus 2.9 (2.6-4.7) mg/dL Magnesium 1.9 (1.8-2.4) mg/dL Total Bilirubin 0.2 (0.2-1.0) mg/dL AST 22 (15-37) IU/L ALT 28 (14-63) IU/L Alkaline Phosphatase 116 (46-116) U/L Total Protein 8.1 (6.4-8.2) g/dL Albumin 3.5 (3.4-5.0) g/dL Globulin 4.6 H (2.6-4.0) g/dL Albumin/Globulin Ratio 0.8 L (0.9-1.6) Lipase 206 (73-393) U/L Urine Color Urine Appearance Urine pH (5.0-8.0) Ur Specific [place] (1.001-1.035) Urine Protein (NEGATIVE) mg/dL Urine Glucose (UA) (NEGATIVE) mg/dL Urine Ketones (NEGATIVE) mg/dL Urine Occult Blood (NEGATIVE) Urine Nitrite (NEGATIVE) Urine Bilirubin (NEGATIVE) Urine Urobilinogen (<2.0) EU/dL Ur Leukocyte Esterase (NEGATIVE) SARS-CoV-2 RNA (ANEL) (NEGATIVE) 09/15/20 09/15/20 Range/Units 20:45 22:18 WBC (4.0-11.0) K/uL RBC (4.30-5.90) M/uL Hgb (12.0-16.0) g/dL Hct (36.0-46.0) % MCV (80.0-98.0) fL MCH (27.0-32.0) pg MCHC (31.0-37.0) g/dL RDW Std Deviation (28.0-62.0) fl RDW Coeff of Kathie (11.0-15.0) % Plt Count (150-400) K/uL MPV (7.40-12.00) fL Neut % (Auto) (48.0-80.0) % Lymph % (Auto) (16.0-40.0) % [place] % (Auto) (0.0-15.0) % Eos % (Auto) (0.0-7.0) % Baso % (Auto) (0.0-1.5) % Neut # (Auto) (1.4-5.7) K/uL Lymph # (Auto) (0.6-2.4) K/uL [place] # (Auto) (0.0-0.8) K/uL Eos # (Auto) (0.0-0.7) K/uL Baso # (Auto) (0.0-0.1) K/uL Nucleated RBC % /100WBC Nucleated RBCs # K/uL Lactate (0.20-2.00) mmol/L Sodium (136-145) mmol/L Potassium (3.5-5.1) mmol/L Chloride (98-107) mmol/L Carbon Dioxide (21.0-32.0) mmol/L BUN (7.0-18.0) mg/dL Creatinine (0.6-1.0) mg/dL Est Cr Clr Drug Dosing mL/min Estimated GFR (MDRD) ml/min Glucose (74-106) mg/dL Calcium (8.5-10.1) mg/dL Phosphorus (2.6-4.7) mg/dL Magnesium (1.8-2.4) mg/dL Total Bilirubin (0.2-1.0) mg/dL AST (15-37) IU/L ALT (14-63) IU/L Alkaline Phosphatase (46-116) U/L Total Protein (6.4-8.2) g/dL Albumin (3.4-5.0) g/dL Globulin (2.6-4.0) g/dL Albumin/Globulin Ratio (0.9-1.6) Lipase (73-393) U/L Urine Color YELLOW Urine Appearance CLEAR Urine pH 6.0 (5.0-8.0) Ur Specific [place] 1.015 (1.001-1.035) Urine Protein NEGATIVE (NEGATIVE) mg/dL Urine Glucose (UA) NEGATIVE (NEGATIVE) mg/dL Urine Ketones NEGATIVE (NEGATIVE) mg/dL Urine Occult Blood NEGATIVE (NEGATIVE) Urine Nitrite NEGATIVE (NEGATIVE) Urine Bilirubin NEGATIVE (NEGATIVE) Urine Urobilinogen 0.2 (<2.0) EU/dL Ur Leukocyte Esterase NEGATIVE (NEGATIVE) SARS-CoV-2 RNA (ANEL) NEGATIVE (NEGATIVE) Meds: Medications Generic Name Dose Route Start Last Admin Trade Name Freq PRN Reason Stop Dose Admin Sodium Chloride 10 ml 09/15/20 20:24 09/15/20 20:33 Sodium Chloride 0.9% 10 Ml Syringe FLUSH 10 ml ASDIRECTED PRN Administration Keep Vein Open Sodium Chloride 2.5 ml 09/15/20 20:24 09/15/20 20:33 Sodium Chloride 0.9% 2.5 Ml Syringe FLUSH 2.5 ml ASDIRECTED PRN Administration Keep Vein Open Discontinued Medications Generic Name Dose Route Start Last Admin Trade Name Freq PRN Reason Stop Dose Admin Fentanyl 50 mcg 09/15/20 20:24 09/15/20 20:32 Fentanyl 50 Mcg/Ml Sdv IVPUSH 09/15/20 20:25 50 mcg ONETIME ONE Administration Fentanyl 100 mcg 09/15/20 22:25 09/15/20 22:35 Fentanyl 50 Mcg/Ml Sdv IVPUSH 09/15/20 22:26 100 mcg ONETIME ONE Administration Sodium Chloride 1,000 mls @ 999 mls/hr 09/15/20 20:24 09/15/20 20:32 Normal Saline IV 09/15/20 21:24 999 mls/hr .Bolus ONE Administration Iopamidol 100 ml 09/15/20 21:39 09/15/20 21:39 Iopamidol 755 Mg/Ml 500 Ml Multipack Bottle IVPUSH 09/15/20 21:40 80 ml ONETIME STA Administration Ketorolac Tromethamine 15 mg 09/15/20 22:25 09/15/20 22:34 Ketorolac 15 Mg/Ml Sdv IVPUSH 09/15/20 22:26 15 mg Q6H STA Administration Ondansetron HCl 4 mg 09/15/20 20:24 09/15/20 20:32 Ondansetron 4 Mg/2 Ml Sdv IVPUSH 09/15/20 20:25 4 mg ONETIME ONE Administration Potassium Chloride 40 meq 09/15/20 21:09 09/15/20 21:55 Potassium Chloride 10% 20 Meq/15 Ml Soln 30 Ml Ud Cup PO 09/15/20 21:10 40 meq ONETIME ONE Administration Departure - Departure Time of Disposition: 22:54 Disposition: Home, Self-Care 01 Condition: Good Clinical Impression: Abdominal pain, Crohn disease, Status post small bowel resection DM type 2 (diabetes mellitus, type 2) Qualifiers: Diabetes mellitus 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 The work-up in the ER has been unremarkable except for low potassium level which is most likely secondary to the amount of diarrhea that you have been having. The CT scan of your abdomen pelvis did not reveal any complications from your surgery or inflammation from your Crohn's disease. You will be discharged home with medication to assist your pain, your nausea, and to help your potassium level. You will be given a prescription for Ultram to help your pain as well as a prescription for Zofran to help your nausea. Please make an appointment to see your family doctor in the next 2 to 3 days for reevaluation. Please return to the ER if you have any new concerning or worsening symptoms. The following information is given to patients seen in the emergency department who are being discharged to home. This information is to outline your options for follow-up care. We provide all patients seen in our emergency department with a follow-up referral. The need for follow-up, as well as the timing and circumstances, are variable depending upon the specifics of your emergency department visit. If you don't have a primary care physician on staff, we will provide you with a referral. We always advise you to contact your personal physician following an emergency department visit to inform them of the circumstance of the visit and for follow-up with them and/or the need for any referrals to a consulting specialist. The emergency department will also refer you to a specialist when appropriate. This referral assures that you have the opportunity for follow-up care with a specialist. All of these measure are taken in an effort to provide you with optimal care, which includes your follow-up. Under all circumstances we always encourage you to contact your private physician who remains a resource for coordinating your care. When calling for follow-up care, please make the office aware that this follow-up is from your recent emergency room visit. If for any reason you are refused follow-up, please contact the [facility] Emergency Department at and asked to speak to the emergency department charge nurse. [facility] [address] [place] [address] [facility] [address] [place] [address] Sepsis Event Note (ED) - Evaluation Sepsis Screening Result: No Definite Risk - Focused Exam Vital Signs: Vital Signs Temp Pulse Resp BP Pulse Ox 09/15/20 21:56 96 18 146/53 H 97 09/15/20 20:28 98.1 F 119 H 15 189/96 H 98 - My Orders Last 24 Hours: My Active Orders 09/15/20 20:24 Sodium Chloride 0.9% [Saline Flush] 10 ml FLUSH ASDIRECTED PRN Sodium Chloride 0.9% [Saline Flush] 2.5 ml FLUSH ASDIRECTED PRN Saline Lock Insert [OM.PC] Stat - Assessment/Plan Last 24 Hours: My Active Orders 09/15/20 20:24 Sodium Chloride 0.9% [Saline Flush] 10 ml FLUSH ASDIRECTED PRN Sodium Chloride 0.9% [Saline Flush] 2.5 ml FLUSH ASDIRECTED PRN Saline Lock Insert [OM.PC] Stat
[2020-09-16 00:52] VITALS: BP 118/52; PULSE 89
== END 2020-09-15 23:40 | disposition home or self-care (01) ==
LOC: MW.ED 20:09
DX: K50.90 Crohn's disease, unspecified, without complications (principal); E11.9 Type 2 diabetes mellitus without complications; I10 Essential (primary) hypertension; K21.9 Gastro-esophageal reflux disease without esophagitis; Z90.49 Acquired absence of other specified parts of digestive tract; Z20.822 Contact with and (suspected) exposure to COVID-19; Z88.8 Allergy status to other drugs, medicaments and biological substances; Z88.5 Allergy status to narcotic agent; Z79.899 Other long term (current) drug therapy
CPT/HCPCS: 36415; 74177; 80053; 81003; 83605; 83690; 83735; 84100; 85025; 87635; 96374; 96375; 96376; 99284; A9270; J1885; J2405; J3010; J7030; Q9967; 99283; U0002